=== PATIENT | female | born 1950 | race Caucasian/White ===

== ENCOUNTER 2023-03-16 06:33 | Outpatient (RCR) | payer OTHER, SELFPAY | END 2023-04-05 07:27 | disposition home or self-care (01) | LOC: RPT 06:33 | PROVIDERS: ATTENDING PHYSICIAN Family Medicine | DX: M54.50 Low back pain, unspecified (principal); Z73.6 Limitation of activities due to disability | CPT/HCPCS: 97110; 97162; 97535 ==

== ENCOUNTER → 2023-04-15 11:48 | Outpatient (REF) | payer OTHER, SELFPAY | LOC: WDC 11:48 | PROVIDERS: ATTENDING PHYSICIAN Family Medicine | DX: Z12.31 Encounter for screening mammogram for malignant neoplasm of breast (principal) | CPT/HCPCS: 77063; 77067 ==

== ENCOUNTER → 2024-02-18 12:27 | Outpatient (REF) | payer OTHER, SELFPAY | LOC: RCS 12:27 | PROVIDERS: ATTENDING PHYSICIAN Family Medicine | DX: R07.89 Other chest pain (principal); M54.12 Radiculopathy, cervical region | CPT/HCPCS: 93306 ==

== ENCOUNTER → 2024-02-18 13:34 | Outpatient (REF) | payer OTHER, SELFPAY | LOC: EMG 13:34 | PROVIDERS: ATTENDING PHYSICIAN Family Medicine | DX: R07.89 Other chest pain (principal) | CPT/HCPCS: 95886; 95911 ==

== ENCOUNTER → 2024-04-12 06:59 | Outpatient (REF) | payer OTHER, SELFPAY ==
[2024-04-12] MEDS: LEXISCAN 0.4 MG IV (09:35)
== END ==
LOC: RCS 06:59
PROVIDERS: ATTENDING PHYSICIAN Family Medicine
DX: I49.8 Other specified cardiac arrhythmias (principal); R07.89 Other chest pain
CPT/HCPCS: 78452; 93017; A9500; J2785

== ENCOUNTER → 2024-04-17 13:41 | Outpatient (REF) | payer OTHER, SELFPAY | LOC: WDC 13:41 | PROVIDERS: ATTENDING PHYSICIAN Family Medicine | DX: Z12.31 Encounter for screening mammogram for malignant neoplasm of breast (principal) | CPT/HCPCS: 77063; 77067 ==

== ENCOUNTER 2024-04-28 08:21 | Day surgery (SDC) | payer OTHER, SELFPAY ==
[2024-04-26 10:26] VITALS: BMI 30.3
[2024-04-26 10:49] LABS: % Basophils 0.6 % (0-2); % Eosinophils 3.4 % (0-6); % Immature Granulocytes 0.2 % (0-0.5); % Lymphocytes 30.5 % (20.5-51.1); % Monocytes 11.1 % (1.7-9.3); % Neutrophils 54.2 % (42.2-75.2); Absolute Eosinophils 0.2 10^3/uL (0-0.7); Absolute Lymphocytes 1.5 10^3/uL (1.2-3.4); Absolute Monocytes 0.5 10^3/uL (0.1-0.6); Absolute Neutrophils 2.6 10^3/uL (1.4-6.5); Hematocrit 41.7 % (37.0-47.0); Hemoglobin 13.5 g/dL (12.0-16.0); Mean Corp Hgb Conc. 32.4 g/dL (33.0-37.0); Mean Corpuscular Volume 86.3 fL (81.0-99.0); Mean Platelet Volume 9.8 fL (7.4-10.4); Nucleated Red Blood Cells % 0 %; Platelet Count 247 10^3/uL (130-400); Red Blood Cell Count 4.83 10^6/uL (4.20-5.40); Red Cell Dist. Width 14.3 % (11.5-14.5); White Blood Cell Count 4.8 10^3/uL (4.8-10.8)
[2024-04-26 11:18] LABS: ALT (SGPT) 22 U/L (0-35); AST (SGOT) 21 U/L (14-36); Albumin 4.9 g/dl (3.5-5.0); Alkaline Phosphatase 97 U/L (38-126); Blood Urea Nitrogen 17 mg/dl (7-17); Calcium 9.9 mg/dl (8.4-10.2); Carbon Dioxide 30 mmol/L (22-30); Chloride 100 mmol/L (98-107); Estimated Creatinine Clearance 81 ml/min; Glucose 104 mg/dl (70-99); Potassium 4.9 mmol/L (3.5-5.1); Sodium 137 mmol/L (135-145); Total Bilirubin 0.9 mg/dl (0.2-1.3); Total Protein 7.6 g/dl (6.3-8.2); eGFR > 60.00
[2024-04-28] VITALS (16 sets, daily range): BP systolic 143–168; BP diastolic 80–91
[2024-04-28] MEDS: NSS 255 ML IV (09:06)
--- NOTE | 2024-04-28 16:38 | ITS.CL.PN ---
Power Press Tender - Procedure Note
Procedure
Procedure Note:
CARDIAC CATHETERIZATION REPORT
Date of Procedure: 04/28/2024
Referring: Dr. Tremayne Choi MD
Indication: new cardiomyopathy with reduced ejection fraction, positive cardiac stress test
PROCEDURE(S)
1. left heart catheterization
2. coronary angiography
ACCESS: 6F right radial artery (closure: radial band)
CATHETERS
1. 6F JR4
2. 6F JL3.5
MODERATE SEDATION: 25 minutes of moderate sedation was utilized. An independent forensic medical examiner was present to assist with and help manage the patient's level of consciousness and physiologic status.
ULTRASOUND GUIDED VASCULAR ACCESS (right radial artery): Ultrasound was utilized for vascular access. The vessel was visualized under ultrasound and noted to be patent. An image of the vessel was stored permanently in the patient's medical record.
Under direct ultrasound guidance, vascular access was obtained using a modified Seldinger technique and a 6 Iraqi sheath was placed.
HEMODYNAMIC DATA
LV 154/9 (EDP 16) mmHg
AO 151/79 (mean 109) mmHg
CORONARY ANGIOGRAPHY
Dominance: Right
LM: large, normal
LAD: large vessel giving rise to a small D1, moderate caliber D2, and wrapping around the apex. There is a 60% stenosis in the proximal vessel, focal 40% stenosis before the D1, and focal 70% stenosis after the D2.
LCx: large vessel giving rise to a small OM1, large OM2, large OM3, and several LPL branches. There is an 80% stenosis in the proximal portion of the OM1 and 40% ostial stenosis of the ostial OM2.
RCA: large vessel giving rise to a large RPDA and several RPL branches. There is a 50% stenosis in the proximal RCA and a focal 80% stenosis just before the bifurcation of the RPDA and RPAV (Warren 1,0,0).
RADIATION: dose 338 mGy; DAP 19.9 Gy*cm2; fluoroscopy time 3.7 min
CONCLUSIONS
1. Three-vessel obstructive coronary artery disease as described.
2. Mildly elevated LV filling pressure with no aortic stenosis
RECOMMENDATIONS
1. Aggressive secondary prevention of coronary artery disease
2. Guideline directed medical therapy for heart failure with mildly reduced ejection fraction
3. Referral to CT surgery for consideration of coronary artery bypass grafting, ideally with grafts to the RPDA, OM1, D2, and mid-LAD. Given lack of anginal symptoms, limited data supporting benefit of percutaneous revascularization in ischemic
cardiomyopathy, as well as moderate to high syntax score, percutaneous revascularization is not appropriate at this time.
Copy to: Dr. Tremayne Choi MD (horticultural farm manager); Dr. Hugh Razo MD (PCP)
Signed: Paul Hebert MD, PhD
== END 2024-04-28 16:20 | disposition home or self-care (01) ==
LOC: CATH 08:21
PROVIDERS: ATTENDING PHYSICIAN Student in an Organized Health Care Education/Training Program; FAMILY PHYSICIAN Family Medicine; OTHER PHYSICIAN Internal Medicine Cardiovascular Disease
DX: I25.10 Atherosclerotic heart disease of native coronary artery without angina pectoris (principal); R94.39 Abnormal result of other cardiovascular function study; I42.9 Cardiomyopathy, unspecified; I44.7 Left bundle-branch block, unspecified; K21.9 Gastro-esophageal reflux disease without esophagitis; K76.0 Fatty (change of) liver, not elsewhere classified; Z80.0 Family history of malignant neoplasm of digestive organs; Z79.82 Long term (current) use of aspirin
CPT/HCPCS: 99152; 99153; C1894; 36415; 76937; 80053; 85025; 93005; 93458; Q9967

== ENCOUNTER → 2024-05-23 09:34 | Outpatient (REF) | payer OTHER, SELFPAY | LOC: HWRAD 09:34 | PROVIDERS: ATTENDING PHYSICIAN Thoracic Surgery (Cardiothoracic Vascular Surgery); FAMILY PHYSICIAN Family Medicine | DX: I25.10 Atherosclerotic heart disease of native coronary artery without angina pectoris (principal); Z01.810 Encounter for preprocedural cardiovascular examination | CPT/HCPCS: 71250; 94010 ==

== ENCOUNTER 2024-06-07 04:47 | Inpatient (IN) | payer OTHER, SELFPAY ==
[2024-05-18 08:28] VITALS: BMI 30.3
[2024-05-18 09:09] LABS: % Basophils 0.7 % (0-2); % Eosinophils 3.7 % (0-6); % Immature Granulocytes 0.4 % (0-0.5); % Lymphocytes 26.8 % (20.5-51.1); % Monocytes 9.5 % (1.7-9.3); % Neutrophils 58.9 % (42.2-75.2); Absolute Eosinophils 0.2 10^3/uL (0-0.7); Absolute Lymphocytes 1.4 10^3/uL (1.2-3.4); Absolute Monocytes 0.5 10^3/uL (0.1-0.6); Absolute Neutrophils 3.2 10^3/uL (1.4-6.5); Hematocrit 40.5 % (37.0-47.0); Hemoglobin 13.2 g/dL (12.0-16.0); Mean Corp Hgb Conc. 32.6 g/dL (33.0-37.0); Mean Corpuscular Hgb 27.7 pg (27.0-31.0); Mean Corpuscular Volume 85.1 fL (81.0-99.0); Mean Platelet Volume 10.1 fL (7.4-10.4); Nucleated Red Blood Cells % 0 %; Platelet Count 241 10^3/uL (130-400); Red Blood Cell Count 4.76 10^6/uL (4.20-5.40); Red Cell Dist. Width 14.4 % (11.5-14.5); White Blood Cell Count 5.4 10^3/uL (4.8-10.8)
[2024-05-18 09:09] LABS: Urine Albumin Negative (Neg - Trace); Urine Bilirubin Negative (Negative); Urine Character Clear (Clear); Urine Color Yellow; Urine Glucose Negative (Negative); Urine Ketone Negative (Negative); Urine Leukocyte 3+ (Negative); Urine Nitrite Negative (Negative); Urine Occult Blood Negative (Negative); Urine Specific Gravity 1.015 (<1.030); Urine Urobilinogen Negative (Neg - 1+)
[2024-05-18 09:18] LABS: INR 0.91; PT 12.7 Sec (11.4-14.6)
[2024-05-18 09:25] LABS: Urine Bacteria Moderate (Negative); Urine Red Blood Cell 0-2 /HPF (0-2); Urine Urothelial Cell 0-2 /LPF (FEW)
[2024-05-18 09:28] LABS: ALT (SGPT) 30 U/L (0-35); AST (SGOT) 25 U/L (14-36); Albumin 4.3 g/dl (3.5-5.0); Alkaline Phosphatase 92 U/L (38-126); Blood Urea Nitrogen 18 mg/dl (7-17); Calcium 9.9 mg/dl (8.4-10.2); Carbon Dioxide 28 mmol/L (22-30); Chloride 107 mmol/L (98-107); Direct Bilirubin 0.1 mg/dl (0.0-0.4); Estimated Creatinine Clearance 96 ml/min; Glucose 104 mg/dl (70-99); Potassium 4.4 mmol/L (3.5-5.1); Sodium 142 mmol/L (135-145); Total Bilirubin 0.7 mg/dl (0.2-1.3); eGFR > 60.00
--- NOTE | 2024-05-18 09:56 | CM ---
Met with Mrs. Villa in [facility]. She states prior to admission she resides with her significant other, ( she calls him her spouse) and her friend, Bobbi in a one story home with four steps to enter. She states her spouse is handicapped due to a car
accident. She states prior to admission she was independent with ambulation and adls. She states she does not have any DME in the home. She states she has a prescription plan and uses [facility]. She states her friend Bobbi will be home to
assist in her care if needed. The plan is to for CABG on Friday, June 07, 2024.
We reviewed pre-op and post-op routines. We reviewed the shower instructions. She has the soap, written instructions and the Cardiothoracic Surgery Educational Booklet. We also reviewed restrictions including sternal precautions and driving
restrictions. We discussed a home visit by the Transitional Care Nurse. She is agreeable to a home visit. The plan is for CABG on Friday, June 07, 2024.
[2024-05-18 11:20] LABS: Glycohemoglobin (HgbA1c) 5.7 % (4.0-5.6)
[2024-06-07] VITALS (18 sets, daily range): BP systolic 86–183; BP diastolic 56–124; PULSE 90–98; BMI 31.2
[2024-06-07] MEDS: PROTONIX 40 MG PO (05:23)
[2024-06-07] MEDS: BACTROBAN 2% OINTMENT 1 APPLIC NASAL ×2 (05:23→22:27)
[2024-06-07] MEDS: LOPRESSOR 25 MG PO (05:23)
[2024-06-07] MEDS: MAGNESIUM OXIDE 500 MG PO (05:23)
--- NOTE | 2024-06-07 05:48 | PTCARENOTE ---
pt arrived to CVICU for CABG with Dr. Sena. pt clipped and cleaned with CHG wipes. 2x home showers confirmed. admission question answers. home medications reviewed. pre op meds administrated. pre op check list reviewed. awaing Dr. Sena and CVOR.
--- NOTE | 2024-06-07 06:02 | W.CVOR.SURPR ---
CVOR Surgeon Immed Pre Op
-
I have examined this patient prior to performance of the scheduled procedure.
The patient's condition is unchanged from the time of the dictated/written History and
Physical and the patient is able to undergo the scheduled procedure.
[2024-06-07 07:31] LABS: ACT+ - POC 107 Seconds (82-134)
[2024-06-07 07:54] LABS: Urine Albumin Negative (Neg - Trace); Urine Bilirubin Negative (Negative); Urine Character Clear (Clear); Urine Color Yellow; Urine Glucose Negative (Negative); Urine Ketone Negative (Negative); Urine Leukocyte Negative (Negative); Urine Nitrite Negative (Negative); Urine Occult Blood Negative (Negative); Urine Urobilinogen Negative (Neg - 1+)
[2024-06-07 09:18] LABS: ACT+ - POC 579 Seconds (82-134)
[2024-06-07 09:51] LABS: B.E. - POC 1.2 mmol/L; Glucose - POC 105 mg/dl (70-99); HCO3 - POC 26 mmol/L (21-28); Hematocrit - POC 37 % PCV (37-47); Hemodilution- POC No; Hemoglobin Calculated - POC 12.4; Lactate - POC 0.83 mmol/L (0.36-0.75); O2 Saturation %Calculated-POC 99.4 % (94-98); PCO2 - POC 38 mmHg (35-48); PO2 - POC 152 mmHg (83-108); Potassium - POC 3.8 mmol/L (3.5-5.1); Sodium - POC 144 mmol/L (136-145); Specimen Type - POC Arterial; pH - POC 7.43 (7.35-7.45)
[2024-06-07 10:01] LABS: ACT+ - POC 495 Seconds (82-134)
[2024-06-07 10:28] LABS: B.E. - POC 2.9 mmol/L; Glucose - POC 159 mg/dl (70-99); HCO3 - POC 27 mmol/L (21-28); Hematocrit - POC 32 % PCV (37-47); Hemodilution- POC Yes; Hemoglobin Calculated - POC 10.8; Ionized Calcium - POC 1.01 mmol/L (1.15-1.33); Lactate - POC 0.57 mmol/L (0.36-0.75); PCO2 - POC 39 mmHg (35-48); PO2 - POC 381 mmHg (83-108); Potassium - POC 5.2 mmol/L (3.5-5.1); Sodium - POC 141 mmol/L (136-145); Specimen Type - POC Arterial; pH - POC 7.45 (7.35-7.45)
[2024-06-07 10:37] LABS: ACT+ - POC 443 Seconds (82-134)
--- NOTE | 2024-06-07 10:44 | W.PN.CD ---
Today's Communication / Plan
-
CABG today.
Impression / Plan
-
Impression/Plan: 73 y/o female with HTN, HLD, CAD and ischemic cardiomyopathy (LVEF 44%) admitted for elective CABG.
#CAD
-Chronic, progressive.
-Currently undergoing CABG surgery.
-Anticipate routine post operative management.
#HTN
-Chronic.
-Hold antihypertensive medications as we resolve her post operative hemodynamic changes.
#HLD
-Chronic, stable.
-Resume statin when possible.
-Goal LDL < 55.
Subjective/Interval History:
Currently undergoing surgery.
DATA:
Cardiac Catheterization, 04/28/2024:
CORONARY ANGIOGRAPHY
Dominance: Right
LM: large, normal
LAD: large vessel giving rise to a small D1, moderate caliber D2, and wrapping around the apex. There is a 60% stenosis in the proximal vessel, focal 40% stenosis before the D1, and focal 70% stenosis after the D2.
LCx: large vessel giving rise to a small OM1, large OM2, large OM3, and several LPL branches. There is an 80% stenosis in the proximal portion of the OM1 and 40% ostial stenosis of the ostial OM2.
RCA: large vessel giving rise to a large RPDA and several RPL branches. There is a 50% stenosis in the proximal RCA and a focal 80% stenosis just before the bifurcation of the RPDA and RPAV (Warren 1,0,0).
TTE, 02/18/2024:
CONCLUSIONS
Mildly reduced left ventricular systolic function. Global hypokinesis.
LV ejection fraction is 44% by volumetric assessment.
Stage I diastolic dysfunction suggestive of abnormal relaxation.
No significant valvular disease.
No prior study available for comparison.
Pharmacologic SPECT, 04/12/2024:
CONCLUSION:
Abnormal Lexiscan stress test.
Inconclusive ECG for ischemia given the pharmacological study due to underlying left bundle branch block.
Perfusion imaging reveals a medium area of moderately decreased perfusion that is partially reversible in the mid to distal anterior wall and apex consistent with infarct with notable zohaib-infarct ischemia.
Systolic function is mildly reduced. The ejection fraction is 44%.
Moderate to high risk Stress Risk study.
No previous study available for comparison.
Physical Exam
Vital Signs/Labs
Vital Signs
BP Pulse Ox
174/95 97
06/07/24 04:59 06/07/24 04:55
06/05/24 06/06/24 06/07/24
11:59 11:59 11:59
Actual Weight 87.5 kg
05/18/24 08:40
05/18/24 08:40
PT 12.7 Sec (11.4-14.6) 05/18/24 08:40
INR 0.91 05/18/24 08:40
APTT 30.0 Sec (23.4-35.0) 05/18/24 08:40
Physical Exam
Constitutional: No acute distress and Comfortable
EENT: Anicteric and Other (ET tube in place.)
Neuro/Psych: Other (Intubated/sedated.)
Data Reviewed
-
Date of Service: June 07, 2024
Medical Decision Making: Reviewed Test Results and Test Interpretation
EKG: Tracing Personally Visualized and interpreted and Report Reviewed by me
Echo: Tracing Personally Visualized and interpreted and Report Reviewed by me
X-Ray/CT/US/MRI/NUC/PET: Image Personally Visualized and interpreted and Report Reviewed by me
Medical Tests (PFT, Pathology etc): Image Personally Visualized and interpreted, Report Reviewed by me and Discussed with Physician
Labs: Labs Reviewed by me
Old Records: Reviewed
[2024-06-07 10:55] LABS: B.E. - POC 0.9 mmol/L; Glucose - POC 173 mg/dl (70-99); HCO3 - POC 26 mmol/L (21-28); Hematocrit - POC 31 % PCV (37-47); Hemodilution- POC Yes; Hemoglobin Calculated - POC 10.6; Ionized Calcium - POC 1.03 mmol/L (1.15-1.33); Lactate - POC 0.65 mmol/L (0.36-0.75); O2 Saturation %Calculated-POC 99.9 % (94-98); PCO2 - POC 42 mmHg (35-48); PO2 - POC 354 mmHg (83-108); Potassium - POC 5.1 mmol/L (3.5-5.1); Sodium - POC 140 mmol/L (136-145); Specimen Type - POC Arterial
[2024-06-07 11:08] LABS: ACT+ - POC 551 Seconds (82-134)
--- NOTE | 2024-06-07 11:41 | CM ---
CM following for DC planning needs.
Patient in OR today for planned CABG.
Reviewed initial assessment. Pt. resides w/ sig. other in a private, 1 STH w/ 4 MARY. Pt. is functionally indep. w/ ADLs, mobility without any assisted device.
Antic. DC plan is for home w/ CT Transitional Care RN.
CM to follow.
[2024-06-07 11:58] LABS: B.E. - POC 0.7 mmol/L; Glucose - POC 178 mg/dl (70-99); HCO3 - POC 27 mmol/L (21-28); Hematocrit - POC 31 % PCV (37-47); Hemodilution- POC Yes; Hemoglobin Calculated - POC 10.5; Ionized Calcium - POC 1.04 mmol/L (1.15-1.33); Lactate - POC 1.66 mmol/L (0.36-0.75); O2 Saturation %Calculated-POC 99.8 % (94-98); PCO2 - POC 47 mmHg (35-48); PO2 - POC 254 mmHg (83-108); Potassium - POC 4.6 mmol/L (3.5-5.1); Sodium - POC 143 mmol/L (136-145); Specimen Type - POC Arterial; pH - POC 7.36 (7.35-7.45)
[2024-06-07 12:01] LABS: ACT+ - POC 186 Seconds (82-134)
[2024-06-07 12:11] LABS: ACT+ - POC 214 Seconds (82-134)
[2024-06-07 12:18] LABS: ACT+ - POC 118 Seconds (82-134)
--- NOTE | 2024-06-07 12:42 | W.IMMPOSTOP ---
Addendum entered and electronically signed by Andrey Sena MD 06/07/24 13:31:
[id number]
Original Note:
Surgical Immed Post Op Note
-
CARDIAC SURGERY OPERATIVE NOTE:
Preoperative Dx:
MVCAD
Postoperative Dx:
Same
Procedures:
1) Median sternotomy
2) Takedown of CHUCK (narrow pedicle)
3) Endoscopic harvest/prep of RLE GSV
4) CABG x 4 (CHUCK to LAD, GSV to D2, GSV to OM1, GSV to RPDA)
5) ELAA (40mm AtriClip - ACHV40)
6) Repair of minor aortic tear
Surgeon:
Andrey Sena M.D.
Assistants:
Bessy RodarteAJanay-CJaany; endoscopic harvest/prep of RLE GSV, medical lab assistant throughout
Herbert Jerez P.A.-C.; assistant professor during cannulation
Disha Fernández PJanayA.-CJanay; [id number] sternotomy closure
Anesthesia:
Eugene Porter C.R.N.A. and Bradly Hoover M.D.
Perfusion:
Yuan CastroCJanayP.; XC: 72min, CPB 133min
Findings:
CHUCK was healthy conduit w/ very brisk blood flow; ELD 2.75mm
GSV was healthy conduit w/ ELDs from 2.75-4.5mm
LAD was visible on the epicardial surface, anastomosis performed in distal 1/3, normal pisano at this site; ELD 2.75mm
D2 was visible on the epicardial surface, serpentine vessel, normal pisano at anastomotic site; ELD 1.75mm
OM1 was visible on the epicardial surface, normal pisano at anastomotic site; ELD 2.50mm
RPDA was visible on the epicardial surface, scattered calcifications, normal pisano at proximal midpoint anastomosis; ELD 2.50mm
Excellent flow in grafts on hand-injection and transit-time U/S flow probe assessment
GABRIELA was of windsock morphology; successfully occluded at base w/ 40mm AtriClip
The ascending aorta had a minor tear directly posterior to the proximal of the GSV to RPDA - repaired w/ pledgetted 5-0 prolene w/ good result
Post-CARRIE: LVEF 65%, no RWMA, normal RV, trace MR/TR, no AI/; GABRIELA confirmed excluded
Implants:
Epicardial V-wire x 1
AtriClip, 40mm, ACHV40; LOT [id number]
CT x 4 (B/L pleural, inferior mediastinal, superior mediastinal)
Sternal 'running-man' plate w/ 8 - 12mm screws
Sternal 'square' plate w/ 4 - 10mm screws
Complications:
No significant complications
Pt. took longer than typical to recover from cardioplegic arrest w/ VF requiring cardioversion x 3, bradycardic junctional rhythm requiring placement of temporary pacing wire, but eventually regained sustained NSR w/ known LBBB.
Condition:
90 sinus (-0.1/0.0), 103/59, CVP 8, 100%
GTTS: dobutamine 3, precedex 0.5, levophed 4, insulin OFF
Stable/guarded to CVICU
No major CT output
[2024-06-07 12:54] LABS: B.E. - POC -1.1 mmol/L; Glucose - POC 97 mg/dl (70-99); HCO3 - POC 24 mmol/L (21-28); Hematocrit - POC 30 % PCV (37-47); Hemodilution- POC Yes; Hemoglobin Calculated - POC 10.2; Ionized Calcium - POC 1.32 mmol/L (1.15-1.33); O2 Saturation %Calculated-POC 99.9 % (94-98); PCO2 - POC 42 mmHg (35-48); PO2 - POC 280 mmHg (83-108); Potassium - POC 3.6 mmol/L (3.5-5.1); Sodium - POC 148 mmol/L (136-145); Specimen Type - POC Arterial; pH - POC 7.37 (7.35-7.45)
[2024-06-07] MEDS: TYLENOL PO (13:03)
--- NOTE | 2024-06-07 13:15 | CON.INTV ---
Consultation
Consultation Request
Date/Time Consultation Requested: 06/07/24-1:15 PM
Date/Time Consultation Performed: 06/07/24-1:15 PM
Requesting Provider: Dr. Sena
Performing Provider: Dr. Avalos
Reason for Consultation: postoperative ventilator/critical care management
Medical History
-
Chief Complaint: CAD
History of Present Illness:
73-year-old never smoking obese female with a history of GERD, gastroparesis found to have significant multivessel CAD and underwent CABG-incendiary powder mixer consulted for postoperative ventilator/critical care management 06/07/24. The patient was
sedated on the ventilator and review of systems was unobtainable. Operative records were reviewed. Ventilator settings were reviewed. FiO2 has been weaned. Chest tubes were evaluated. Pressors were reviewed.
Past Medical History
Past Medical History: None ( Obesity. GERD. Gastroparesis.)
Social History
Tobacco: Non-smoker
Alcohol: Occasional
Drug: None
Personal:
Living: With Family
Occupational Exposures: No known asbestos exposure
Environmental Exposures: no known tuberculosis exposure
Family History
Family History: Other ( CAD. Colon cancer.)
Allergies / Home Medications
Allergies
Allergy/AdvReac Type Severity Reaction Status Date / Time
No Known Allergies Allergy Unverified 06/30/07 09:04
Home Medications
�Medication �Instructions �Recorded �Confirmed �Last Taken �Type
aspirin 81 mg tablet,delayed 81 mg PO DAILY 04/28/24 06/07/24 06/06/24 08:00 History
release
ergocalciferol (vitamin D2) 1,250 1,250 mcg PO QWEEK 04/28/24 06/07/24 06/04/24 08:00 History
mcg (50,000 unit) capsule (Vitamin
D2)
escitalopram oxalate 10 mg tablet 10 mg PO DAILY 04/28/24 06/07/24 06/06/24 08:00 History
lisinopril 10 mg tablet 10 mg PO QPM 04/28/24 06/07/24 06/04/24 08:00 History
metoprolol succinate 25 mg 25 mg PO QPM 04/28/24 06/07/24 06/06/24 08:00 History
tablet,extended release 24 hr
nitroglycerin 0.4 mg sublingual 0.4 mg sublingual Q5-15M PRN chest 04/28/24 06/07/24 Unknown History
tablet pain
rosuvastatin 40 mg tablet 40 mg PO DAILY 04/28/24 06/07/24 06/06/24 08:00 History
Review of Systems
-
Unable to Obtain full review of systems at this time due to: Other ( Per HPI)
Vitals / Labs / Diagnostic Testing
Vital Signs
BP Pulse Ox
174/95 97
06/07/24 04:59 06/07/24 04:55
Diagnostic Testing:
Physical Exam
-
Exam:
well-nourished and well-developed in no apparent distress
HEENT-atraumatic, normocephalic, oral tracheal intubation
Heart-regular rate and rhythm-no murmurs, rubs or gallops
Chest-clear to auscultation, no wheezes, crackles, median sternotomy bandage is not removed
Abdomen soft nondistended
Extremities-no cyanosis, clubbing, edema and good peripheral pulses
Integument-intact, no rashes, lesions or ecchymosis
Neurologically not alert, not oriented, not moving any of his extremities sedated on a ventilator
Assessment
-
73 yo never smoking obese female with a history of GERD, gastroparesis found to have significant multivessel CAD and underwent CABG-incendiary powder mixer consulted for postoperative ventilator/critical care management 06/07/24.
Multivessel CAD with preoperative EF 44%
Status post CABG x 4-Namrata-LAD, GSV-D2, GSV-OM1, GSV-RPDA-Dr. Sena 06/07/24
Conditions present prior to admission:
Obesity.
GERD.
Gastroparesis.
Plan
Ventilator settings reviewed
FiO2 will be weaned
Minute ventilation will be adjusted
Arterial blood gases will be monitored
Spontaneous breathing trial will be attempted with hopeful extubation after anesthesia/sedation wear off
Pulmonary artery catheter parameters will be followed
Pressors/antihypertensive/inotropes/diuretics will be provided as needed
Monitor chest tube output
Monitor hemoglobin
Monitor platelet count and coags
Transfuse blood product if needed
CT surgery following chest tubes
Monitor blood sugar
Insulin drip per protocol
Aspiration precautions
VAP prevention protocol
DVT prophylaxis
Early nutrition
Early mobilization
Consider outpatient sleep disordered breathing/sleep apnea evaluation
Critical care statement: A total of 55 minutes of critical care time was provided for this patient today. This includes management of ventilator, spontaneous breathing trial, arterial blood gases, pressors, of unstable vital signs, evaluation of the
patient at bedside, reviewing the patient's pertinent medical records including radiographs, microbiology, laboratory evaluations, and discussion with primary team and critical care nursing.
Diagnostic data:
CT chest 05/23/24-NAD, normal caliber thoracic aorta and mildly calcified plaque within the distal arch, extensive coronary artery calcifications, mild subsegmental atelectasis both posterior lower lobes
Cardiac catheterization 04/28/20245511-srmhz-lewagh CAD, 60% proximal LAD, 40% stenosis before D1, 80% stenosis proximal OM1 40% ostial stenosis OM2, 50% stenosis proximal RCA and 80% stenosis just before bifurcation of RPDA
Echocardiogram 02/18/2024-EF 44%, stage I diastolic dysfunction, no significant valvular disease
Spirometry 05/18/24-FEV1 2.3-100%, FVC 3.0-100%
Data Reviewed
-
PFT: Report reviewed by me
EKG: Report reviewed by me
Radiology: Report reviewed by me
CT Scan: Report reviewed by me
Medical Tests (Nuc Med, Echo etc): Report reviewed by me
Labs: Labs reviewed by me
Critical Care Time (in minutes): 55
[2024-06-07 13:24] LABS: Glucose - Point of Care 112 mg/dl (70-99)
[2024-06-07] MEDS: LR 250 ML IV ×3 (13:30→16:11)
[2024-06-07 13:33] LABS: B.E. -2.5 mmol/L; HCO3 22.5 mmol/L (21-28); Ionized Calcium 1.17 mMOL/L (1.15-1.33); O2 Saturation % 99.4 % (94-98); PCO2 39 mmHg (32-35); PO2 117 mmHg (83-108); Potassium 3.5 mMOL/L (3.5-5.1); Sodium 139 mMOL/L (136-145); pH 7.37 (7.35-7.45)
[2024-06-07 13:36] LABS: Hematocrit 27.4 % (37.0-47.0); Platelet Count 159 10^3/uL (130-400)
[2024-06-07 13:45] LABS: Blood Urea Nitrogen 14 mg/dl (7-17); Estimated Creatinine Clearance 96 ml/min; Glucose 110 mg/dl (70-99); Magnesium 2.8 mg/dl (1.6-2.3)
[2024-06-07 13:47] LABS: INR 1.46; PT 18.3 Sec (11.4-14.6)
[2024-06-07 13:48] LABS: APTT 31.3 Sec (23.4-35.0)
--- NOTE | 2024-06-07 13:48 | PTCARENOTE ---
Received patient from CVOR team, report given at bedside 1315. Patient Intubated and Sedated. Pupils 2 equal and reactive. Sinus Tach on monitor and VSS; Right IJ Cordis/ SILT, L radial Art line, PIV X1, all leveled and zero. Levo , Precedex,
Dobutamine, and Insulin infusing, see flowsheet for details. Epicardial V wire in place set to VBI 40/18/2. No Paced noted on monitor. Lungs clear bilateral, ETT 8,22 @lip. Vent setting SMIV, 40% /500/5/14.
CT X4 to -20 wall suction, no air leak, no creptis noted. Bowels sounds hypoactive, belly soft. Cabrera cathater drain clear yellow urine. Pulse present +3 Palpital, no noted edema. All surgical sites C/D/I. See nursing documentation for futher
details.
CTNP at bedside patient PASSENGER RATE CLERK Labile LR bolus given.
--- NOTE | 2024-06-07 13:50 | W.PN.UPDATE ---
Update Note
Progress Note Update
IV fluids: 0 mL
Crystalloid: 2900 mL
U.O.: 1000 mL
UF: 1200 mL
Blood: None
Wires: V-wires 40/10
Inotropes: Dobutamine - 3
Pressors: levophed - 5
Sedatives: precedex - 0.5
NEURO: sedated on Precedex, pupils +2mm B/L
RESP: #8 ETT @ 23 cm> 14/500/40/5 Lungs clear B/L. 2 mediastinal (5 cc on arrival) and R/L pleural (0 cc on arrival) chest tubes to -20cm suction. Sanguineous drainage
CV: RRR +S1, S2, no S3, no rub, no murmur. Aquacel Ag dressing to median sternotomy. RIJ cordis/slick; CVP 9
ABD: round, soft, no BS
EXT: no edema, +2/4 DP pulses B/L, no femoral bruit, RLE PAULETTE wrap intact with ecchymosis at R groin; R radial A-line intact
: Cabrera with clear yellow urine
A/P: POD #0 s/p CAB x 4 (CHUCK - LAD, GSV to D2, GSV to OM1, GSV to RPDA)
CARRIE: EF 65%
- wean and extubate
- Monitor CT and urine output
- Follow up labs and CXR
- Wean levophed for maps >65/SBP goal 90-120
- Will start ASA tonight
- EKG with prolonged QT/QTc (470/621) and sent to cards
>> Lexapro d/c, Amio con't - continue to monitor QTc
- Cards consulted
# acute surgical blood loss anemia-expected
- trend CBC
# acute post-operative hyperglycemia (A1C 5.7%)
- insulin infusion x 25h
# Hyperlipidemia
- resume statin when tolerating PO
[2024-06-07 14:05] LABS: Glucose - Point of Care 104 mg/dl (70-99)
[2024-06-07] MEDS: NSS 500 IV (14:11)
[2024-06-07] MEDS: ANCEF 10 IV ×2 (14:11)
[2024-06-07] MEDS: CALCIUM GLUCONATE 100 IV (14:13)
[2024-06-07] MEDS: KCL 50 IV (14:14)
[2024-06-07 15:10] LABS: Glucose - Point of Care 108 mg/dl (70-99)
[2024-06-07] MEDS: NEURONTIN PO (15:30)
[2024-06-07] MEDS: PACERONE PO ×2 (15:30→22:29)
[2024-06-07] MEDS: OFIRMEV 100 IV (15:50)
--- NOTE | 2024-06-07 15:51 | PTCARENOTE ---
Respiratory at bedside and pt placed on CPAP.
[2024-06-07 15:58] LABS: Glucose - Point of Care 107 mg/dl (70-99)
[2024-06-07 16:28] LABS: B.E. - POC -0.2 mmol/L; Blood Urea Nitrogen - POC 15 mg/dl (3-120); Chloride - POC 111 mmol/L (96-111); Creatinine - POC 0.67 mg/dl (0.3-1.0); Glucose - POC 118 mg/dl (70-99); HCO3 - POC 26 mmol/L (21-28); Hematocrit - POC 29 % PCV (37-47); Hemodilution- POC Yes; Hemoglobin Calculated - POC 9.7; Ionized Calcium - POC 1.31 mmol/L (1.15-1.33); Lactate - POC 2.56 mmol/L (0.36-0.75); O2 Saturation %Calculated-POC 95.7 % (94-98); PCO2 - POC 47 mmHg (35-48); PO2 - POC 85 mmHg (83-108); Potassium - POC 5.2 mmol/L (3.5-5.1); Sodium - POC 144 mmol/L (136-145); Specimen Type - POC Arterial; pH - POC 7.35 (7.35-7.45)
--- NOTE | 2024-06-07 16:40 | RESPNOTE ---
patient extubated at this time without incident. 100% on 6L. unable to do IS at this time-patient very sleepy.
--- NOTE | 2024-06-07 16:40 | PTCARENOTE ---
CTNP at bedside, ABG collected, result reviewed with CTNP. RT at bedside patietn extubated at 1635, place on 5 L NC. Alert and Oriented
[2024-06-07 17:00] LABS: Glucose - Point of Care 122 mg/dl (70-99)
[2024-06-07 17:05] LABS: Hematocrit 27.2 % (37.0-47.0); Hemoglobin 9.1 g/dL (12.0-16.0); Platelet Count 170 10^3/uL (130-400)
[2024-06-07 17:56] LABS: Glucose - Point of Care 106 mg/dl (70-99)
[2024-06-07 18:28] LABS: B.E. -2.7 mmol/L; HCO3 23.2 mmol/L (21-28); Ionized Calcium 1.25 mMOL/L (1.15-1.33); O2 Saturation % 99.2 % (94-98); PCO2 44 mmHg (32-35); PO2 122 mmHg (83-108); Sodium 137 mMOL/L (136-145); pH 7.33 (7.35-7.45)
[2024-06-07] MEDS: SODIUM BICARBONATE 50 MEQ IV (18:35)
[2024-06-07] MEDS: LOW STRENGTH ASPIRIN 81 MG PO (19:16)
[2024-06-07] MEDS: CALCIUM CHLORIDE 10% SYRINGE 500 MG IV ×2 (19:25→19:27)
[2024-06-07] MEDS: ANCEF 5 IV (19:44)
[2024-06-07] MEDS: SENOKOT-S 1 TABLET PO (19:46)
[2024-06-07] MEDS: LR 1000 IV (19:58)
[2024-06-07 20:07] LABS: Glucose - Point of Care 98 mg/dl (70-99)
--- NOTE | 2024-06-07 20:31 | PTCARENOTE ---
1899 -COS report given to incoming RN, 1914- patient had ice chips and head of bed was raise slightly to given PO ASA. Patient had a drop in SBP. mAP in 50's, patient A& O , denies dizziness. Levoped was increase and trirated upto 6 and LR bolus,
and Claudio+ 1 G given, leveo wean down agaion. Dr Sena at bedside order LR 100/hr to be given as well. 1999- patietn sat up again for medicaiton and SBp drop as before, levo tirated up and back down again until stable.
[2024-06-07 21:52] LABS: Glucose - Point of Care 127 mg/dl (70-99)
[2024-06-07] MEDS: TYLENOL 1000 MG PO (22:24)
[2024-06-07] MEDS: NEURONTIN 100 MG PO (22:25)
[2024-06-07 22:29] LABS: B.E. -0.4 mmol/L; HCO3 24.9 mmol/L (21-28); Ionized Calcium 1.34 mMOL/L (1.15-1.33); O2 Saturation % 99.6 % (94-98); PCO2 43 mmHg (32-35); PO2 117 mmHg (83-108); Potassium 4.8 mMOL/L (3.5-5.1); pH 7.37 (7.35-7.45)
[2024-06-07] MEDS: LEVOPHED 250 IV (22:30)
[2024-06-07 22:31] LABS: Hematocrit 26.7 % (37.0-47.0); Hemoglobin 8.7 g/dL (12.0-16.0); Mixed Venous O2 Saturation 71.1 %
[2024-06-07] MEDS: ALBUMIN 5% 250 IV (22:40)
--- NOTE | 2024-06-07 23:15 | PTCARENOTE ---
Assumed sole care of patient. At 2230, pt with another episode of hypotension. SBP initially 80's systolic. Goal SBP 90-120 mmHG. PA at [facility]. Albumin 5% 250 mls IV ordered and given. Labs drawn and sent. Portable CXR done. Rolled pt from
[id number] for XR. With movement, BP down to 6o-70's systolic. Albumin infusing and Levo titrated for goal SBP. Pt remains awake, talking. O2 sat 97% on 5L/NC. PA with results of all tests and communicated with Dr. Sena. Remains in SR,
occasional PVCs. 2200 dose of Amiodarone held per PA order.
Currently, Pt alert, awake, oriented x 4. Speech clear. Moves extremities with equal strength. Pt on 5L/NC. Sats 97-98%. BBS present. Decreased to B bases. Audible heart tones. Pt in SR, rate 80-90's. Levo gtt at 2 mcg/min. Dobutamine gtt at 1
mcg/kg/min. Decreased at 2140 per provider order. CVP 6-7. V wire attached to Temp PM: back up rate 40, mA 18, sensitivity 2. CTs x 4, all to -20 cm suction. Drainage monitored q1hr and prn. R groin noted to be bruised. SHUKRI Mario aware. Palpable R
DP pulse, Cap refill < 2 sec. Belly soft, nontender. Hypoactive bs x 4. Cabrera with clear, yellow urine. Hourly UO documented. Glycemic protocol followed. Insulin gtt infusing. Ongoing plan of care.
[2024-06-08] VITALS (38 sets, daily range): BP systolic 77–130; BP diastolic 42–70; PULSE 87; O2SAT 92–95; BMI 32.4
[2024-06-08 02:15] LABS: Glucose - Point of Care 100 mg/dl (70-99)
[2024-06-08] MEDS: ROXICODONE 2.5 MG PO ×2 (02:35→10:26)
--- NOTE | 2024-06-08 02:46 | PTCARENOTE ---
Dobutamine gtt off at 0111 per provider order. Roxicodone 2.5 mg po given at 0235 for 5/10 sternal pain. Raised HOB prior to taking pill, BP down to 91 systolic briefly. Levo gtt remains at 2 mcg/min. LR at 100 mls/hr. Pt in SR. T 100.1. Sats on
5L/NC are 99%. Titrated to 4L/NC.
[2024-06-08 04:02] LABS: Mixed Venous O2 Saturation 71.1 %
[2024-06-08 04:05] LABS: Glucose - Point of Care 115 mg/dl (70-99)
[2024-06-08] MEDS: ANCEF 5 IV ×2 (04:10→13:14)
[2024-06-08 04:12] LABS: Hematocrit 22.7 % (37.0-47.0); Hemoglobin 7.4 g/dL (12.0-16.0); Mean Corp Hgb Conc. 32.6 g/dL (33.0-37.0); Mean Platelet Volume 10.3 fL (7.4-10.4); Platelet Count 161 10^3/uL (130-400); Red Blood Cell Count 2.64 10^6/uL (4.20-5.40); Red Cell Dist. Width 14.6 % (11.5-14.5); White Blood Cell Count 12.4 10^3/uL (4.8-10.8)
[2024-06-08 04:26] LABS: Blood Urea Nitrogen 20 mg/dl (7-17); Calcium 9.1 mg/dl (8.4-10.2); Carbon Dioxide 27 mmol/L (22-30); Chloride 109 mmol/L (98-107); Estimated Creatinine Clearance 96 ml/min; Glucose 110 mg/dl (70-99); Potassium 4.6 mmol/L (3.5-5.1); Sodium 138 mmol/L (135-145); eGFR > 60.00
[2024-06-08 06:08] LABS: Glucose - Point of Care 110 mg/dl (70-99)
--- NOTE | 2024-06-08 06:15 | PTCARENOTE ---
Labs drawn and sent. EKG done. Portable CXR completed. When sitting pt forward for CXR, pt with transient hypotension-80's/40's. Levo gtt remains at 2 mcg/min. Hgb this am 7.4. SHUKRI Mario aware. EKG shown to SHUKRI. MVO2 with Dobutamine gtt off is
71.1. Pt remains in SR, rate 70--80's. 4L/NC/O2, O2 sat 97%. CDB and IS done with pt. IS peak 500 mls. Ongoing glycemic protocol and plan of care.
[2024-06-08] MEDS: TYLENOL 1000 MG PO ×3 (06:25→22:45)
--- NOTE | 2024-06-08 07:49 | W.PN.INTV ---
Today's Communication / Plan
Recommendations
blood pressure somewhat labile
Wean norepinephrine and dobutamine
Monitor chest tube output
Begin to deline
Wean insulin drip off
If transferred to telemetry then business area director will sign off-call pulmonary if respiratory issues arise
Assessment
-
73 yo never smoking obese female with a history of GERD, gastroparesis found to have significant multivessel CAD and underwent CABG-business area director consulted for postoperative ventilator/critical care management 06/07/24.
Multivessel CAD with preoperative EF 44%
Status post CABG x 4-[place]-LAD, GSV-D2, GSV-OM1, GSV-RPDA-Dr. Sena 06/07/24
Conditions present prior to admission:
Obesity.
GERD.
Gastroparesis.
Plan
Tolerated extubation
Wean FiO2
Encourage incentive spirometry
Increase activity
Aspiration precautions
Pulmonary artery catheter and arterial line will be removed
Pressors have been weaned
Continue to monitor chest tube output
Follow hemoglobin
Continue to follow platelet count and coags
Transfuse blood product as needed
CT surgery following chest tubes as well
Follow blood sugar
Insulin supplementation continues as needed
Early nutrition
Early mobilization
DVT prophylaxis
Consider outpatient sleep disordered breathing/sleep apnea evaluation
If patient transferred to telemetry phase- then business area director will sign off-call pulmonary if respiratory issues arise
Reviewed the patient's pertinent medical records including radiographs, microbiology, laboratory evaluations, and discussion with primary team, and critical care nursing.
Diagnostic data:
CT chest 05/23/24-NAD, normal caliber thoracic aorta and mildly calcified plaque within the distal arch, extensive coronary artery calcifications, mild subsegmental atelectasis both posterior lower lobes
Cardiac catheterization 04/28/20241689-[id number] CAD, 60% proximal LAD, 40% stenosis before D1, 80% stenosis proximal OM1 40% ostial stenosis OM2, 50% stenosis proximal RCA and 80% stenosis just before bifurcation of RPDA
Echocardiogram 02/18/2024-EF 44%, stage I diastolic dysfunction, no significant valvular disease
Spirometry 05/18/24-FEV1 2.3-100%, FVC 3.0-100%
Subjective Dataa
Subjective Data
Date of Service:
Date of Service: June 08, 2024
Chief Complaint: [employer] Follow Up, Pulmonary Follow Up and Vent Management Follow Up
Subjective:
no complaints of shortness of breath this morning, pain controlled, no chest congestion, productive cough or abdominal pain
Review of Systems
General: Other ( Per HPI)
Objective Data
Data Reviewed
Vital Signs / I&O / Oxygen:
Vital Signs
Temp Pulse Resp BP Pulse Ox
100.3 F 85 18 104/60 98
06/08/24 07:00 06/08/24 07:00 06/08/24 07:00 06/08/24 07:00 06/08/24 07:00
Intake and Output
06/07/24 06/08/24 06/09/24
06:59 06:59 06:59
Intake Total 3482.0 / 3511.8 29.8 / 29.8
Output Total 1395 / 1430 35 / 35
Balance 2087.0 / 2081.8 -5.2 / -5.2
SaO2 [CPAP] 99
SaO2 [SIMV] 97
SaO2 98
Nasal Cannula flow liters per 4
minute
Physical Exam
General: Respiratory Distress (n) and Comfortable
HEENT: Normocephalic, Anicteric and Moist Mucous Membranes
Cardiovascular: Regular Rhythm
Respiratory: Wheeze (n), Crackles ( few basilar), Rhonchi, Non-Labored Respirations, Accessory Resp Muscle Use (n) and Stridor (n)
GI: Soft, Non Distended and Non Tender
Neurology: Awake, Alert and No Motor Deficits
Skin: Warm, Good Color, Cyanosis (n), Jaundice (n) and Rash (n)
Labs/Micro/Reports
Lab Data
06/08/24 03:53
06/08/24 03:53
Laboratory Results
06/07/24 06/07/24 06/07/24
13:24 18:21 22:22
PT 18.3 H
INR 1.46
APTT 31.3
pH 7.37 7.33 L 7.37
pCO2 39 H 44 H 43 H
pO2 117 H 122 H 117 H
HCO3 22.5 23.2 24.9
O2 Delivery Level
--- NOTE | 2024-06-08 07:57 | W.PN.CT ---
Today's Communication / Plan
-
-pod #1
-labile BP postop, responded to fluids and Levo
-mVO2 is 71. Drips: Levo 2, Dobut (for bradycardia) off currently, LR 100cc/hr for 10 hrs (currently off), Insulin
-CT outputs: 2 meds 125/190, 2 pleur 110/165 in 12/24 hrs
-maintain pw (was junctional in OR, VVI @ 40 backup)
-monitor rhythm and BP
-wean off drips, then deline
-d/c Cabrera
-d/c insulin
-encourage IS, OOB
Assessment / Plan
-
- mv-CAD - s/p CABG x 4 (CHUCK to LAD, GSV to D2, GSV to OM1, GSV to RPDA); ELAA (40mm AtriClip - ACHV40); Repair of minor aortic tear by Dr. Sena on 06/07/24, pod #1
- bradycardic junctional rhythm requiring placement of temporary pacing wire, but eventually regained sustained NSR w/ known LBBB.
- Post-CARRIE: LVEF 65%, no RWMA, normal RV, trace MR/TR, no AI/; GABRIELA confirmed excluded
- CAD
- Ischemic CM - EF 44% by Echo 02/2024 and 60-65% postop
- Non-smoker
- HTN/HLD
- Chronic LBBB
- GERD/ gastroparesis
- Acute postop blood loss anemia
- Acute postop hypotension d/t vasoplegia
- Acute postop atelectasis
- Acute postop hypovolemia with subsequent hypervolemia
Discussed patient care with: Nursing and Care Team
Subjective
-
Date of Service: June 07, 2024
Objective Data
-
Lab Results
06/07/24 22:22
06/07/24 13:24
PT 18.3 Sec (11.4-14.6) H 06/07/24 13:24
INR 1.46 06/07/24 13:24
APTT 31.3 Sec (23.4-35.0) 06/07/24 13:24
Vital Signs
Vital Signs
Temp Pulse Resp BP Pulse Ox
100.9 F H 94 15 93/62 99
06/07/24 23:30 06/07/24 23:25 06/07/24 23:25 06/07/24 22:41 06/07/24 23:25
CT Intake/Output/Weight
06/07/24 06/07/24 06/08/24
06:59 18:59 06:59
Intake Total 1303.3 / 2522.8 1219.5 / 2522.8
Output Total 595 / 995 400 / 995
Balance 708.3 / 1527.8 819.5 / 1527.8
SaO2: 99
Physical Exam
-
General: Awake and AOx3
Cardiovascular: Regular rate & rhythm, No Murmurs and No Rub
Respiratory: Decreased Breath Sounds
Sternum: Stable
Incision: Clean, Dry and Intact
Extremities: Other (trace edema b/l. DPs 1+ b/l)
Abdomen: soft, nontender, nondistended, + decreased bowel sounds
Data Reviewed
-
Lab Results: Results Reviewed
Medications: Active Meds Reviewed
Chest X-Ray: Report Reviewed and Image Reviewed
ECG: Report Reviewed and Image Reviewed
[2024-06-08 08:07] LABS: Glucose - Point of Care 97 mg/dl (70-99)
[2024-06-08] MEDS: LOPRESSOR PO (08:24)
[2024-06-08] MEDS: PROTONIX 40 MG PO (08:28)
[2024-06-08] MEDS: PLAVIX 75 MG PO (08:28)
[2024-06-08] MEDS: LOW STRENGTH ASPIRIN 81 MG PO (08:28)
[2024-06-08] MEDS: PACERONE 200 MG PO ×3 (08:28→22:46)
[2024-06-08] MEDS: SENOKOT-S 1 TABLET PO ×2 (08:29→19:13)
[2024-06-08] MEDS: NEURONTIN 100 MG PO ×3 (08:29→22:45)
[2024-06-08] MEDS: BACTROBAN 2% OINTMENT 1 APPLIC NASAL ×2 (08:29→19:13)
[2024-06-08] MEDS: CRESTOR 40 MG PO (08:29)
[2024-06-08] MEDS: MAGNESIUM OXIDE 500 MG PO ×2 (08:29→19:13)
[2024-06-08] MEDS: LIDOCAINE 4% PATCH 1 PATCH TOPICAL (08:30)
--- NOTE | 2024-06-08 08:47 | PTCARENOTE ---
Received pt from night order selector RN; pt AAOx3 and resting comfortably in bed; NSR on monitor and VSS; Epicardial V wire in place set to VVI 40/18/2 and no pacing noted; RIJ Cordis/CLIC, left a-line and PIV x1 patent; Levo and Insulin infusing see flow
sheet for details; Lungs diminished; IS to 750; CT x4 to -20 wall suction no crepitus and no tidaling noted; hypoactive bowel sounds; Cabrera catheter draining clear yellow urine; palpable pulses throughout; trace generalized edema; all surgical sites
C/D/I; see nursing documentation for further details.
--- NOTE | 2024-06-08 08:56 | W.PN.CD ---
Today's Communication / Plan
-
Wean levo as able
OOB when able
ISB
Impression / Plan
-
Impression/Plan: 73 y/o female with HTN, HLD, CAD and ischemic cardiomyopathy (LVEF 44%) admitted for elective CABG.
#CAD s/p CABG x 4 (CHUCK to LAD, GSV to D2, GSV to OM1, GSV to RPDA); ELAA (40mm AtriClip - ACHV40); Repair of minor aortic tear by Dr. Sena on 06/07/24
- had some SN dysfxn but back in SR
- wean levophed as able
- aspirin daily
- statin when able
#HTN
-Chronic.
-Holding antihypertensive medications as we resolve her post operative hemodynamic changes.
#HLD
-Chronic, stable.
-Resume statin when possible.
-Goal LDL < 55.
Subjective/Interval History:
Feeling well no new complaints; OOB when able and ISB
DATA:
Cardiac Catheterization, 04/28/2024:
CORONARY ANGIOGRAPHY
Dominance: Right
LM: large, normal
LAD: large vessel giving rise to a small D1, moderate caliber D2, and wrapping around the apex. There is a 60% stenosis in the proximal vessel, focal 40% stenosis before the D1, and focal 70% stenosis after the D2.
LCx: large vessel giving rise to a small OM1, large OM2, large OM3, and several LPL branches. There is an 80% stenosis in the proximal portion of the OM1 and 40% ostial stenosis of the ostial OM2.
RCA: large vessel giving rise to a large RPDA and several RPL branches. There is a 50% stenosis in the proximal RCA and a focal 80% stenosis just before the bifurcation of the RPDA and RPAV (Warren 1,0,0).
TTE, 02/18/2024:
CONCLUSIONS
Mildly reduced left ventricular systolic function. Global hypokinesis.
LV ejection fraction is 44% by volumetric assessment.
Stage I diastolic dysfunction suggestive of abnormal relaxation.
No significant valvular disease.
No prior study available for comparison.
Pharmacologic SPECT, 04/12/2024:
CONCLUSION:
Abnormal Lexiscan stress test.
Inconclusive ECG for ischemia given the pharmacological study due to underlying left bundle branch block.
Perfusion imaging reveals a medium area of moderately decreased perfusion that is partially reversible in the mid to distal anterior wall and apex consistent with infarct with notable zohaib-infarct ischemia.
Systolic function is mildly reduced. The ejection fraction is 44%.
Moderate to high risk Stress Risk study.
No previous study available for comparison.
Physical Exam
Vital Signs/Labs
Vital Signs
Temp Pulse Resp BP Pulse Ox
99.8 F 87 15 107/59 97
06/08/24 08:00 06/08/24 08:15 06/08/24 08:15 06/08/24 08:00 06/08/24 08:15
06/07/24 06/08/24 06/09/24
06:59 06:59 06:59
Actual Weight 192 lb 14.472 oz 200 lb 13.458 oz
06/08/24 03:53
06/08/24 03:53
PT 18.3 Sec (11.4-14.6) H 06/07/24 13:24
INR 1.46 06/07/24 13:24
APTT 31.3 Sec (23.4-35.0) 06/07/24 13:24
Magnesium 2.0 mg/dl (1.6-2.3) 06/08/24 03:53
Physical Exam
Constitutional: No acute distress and Comfortable
EENT: Anicteric
Cardiovascular: Rhythm & rate is regular and Pedal edema is absent
Respiratory: Respiratory effort normal
GI: Soft
Neuro/Psych: AO x 3
Data Reviewed
-
Date of Service: June 08, 2024
EKG: Tracing Personally Visualized and interpreted (sr)
Echo: Report Reviewed by me
Labs: Labs Reviewed by me
[2024-06-08 10:16] LABS: Glucose - Point of Care 126 mg/dl (70-99)
[2024-06-08] MEDS: LASIX 40 MG IV (10:20)
--- NOTE | 2024-06-08 11:19 | PTCARENOTE ---
SLIC and left A-line removed per CT CUT OUT MACHINE OPERATOR order; Cabrera catheter removed pt DTV by 1700.
--- NOTE | 2024-06-08 11:45 | PTCARENOTE ---
NSR on monitor and VSS: assessment unchanged and pt resting comfortably in bed.
[2024-06-08 12:10] LABS: Glucose - Point of Care 104 mg/dl (70-99)
--- NOTE | 2024-06-08 12:37 | W.PN.ANS.POP ---
Anesthesia Post Operative
- Anesthesia Post Op Note
Vital Signs Stable-See Nursing Note: Yes
Airway Patent: Yes
Adequate Pain Control: Yes
Change in Mental Status: No
Current Postoperative Nausea & Vomiting: No
Anesthesia Complications: No
General Anesthetic Recall: No
Unplanned Admission: No
Post Op Hydration Adequate: Yes
--- NOTE | 2024-06-08 12:54 | PTCARENOTE ---
2 RNs tried to assist pt to chair, SBP 70s and pt symptomatic; CT MANAGER ANDROID notified, 1 unit PRBCs order and awaiting blood bank.
[2024-06-08] MEDS: NSS IV (13:15)
--- NOTE | 2024-06-08 13:26 | PTCARENOTE ---
1 unit PRBCs infusing.
[2024-06-08 13:27] LABS: Glucose - Point of Care 106 mg/dl (70-99)
--- NOTE | 2024-06-08 15:06 | PTCARENOTE ---
1 unit PRBC infused without difficulties; NSR On monitor and VSS; assessment unchanged.
[2024-06-08 15:26] LABS: Glucose - Point of Care 111 mg/dl (70-99)
[2024-06-08] MEDS: ROXICODONE 5 MG PO (19:13)
[2024-06-08] MEDS: LOPRESSOR 12.5 MG PO (19:13)
[2024-06-08 19:18] LABS: Hepatitis C Antibody Negative (Negative)
--- NOTE | 2024-06-08 20:00 | PTCARENOTE ---
Assumed care of the patient at 1900. Patient OOB to chair, AOx3, reports pain 9/10. Given PRN oxycodone, see MAR. Patient requested to get BIB, RN explained the benefits of sitting upright in the chair for as long as tolerated and educated patient
on onset of action of pain medication. Patient in agreement to remain in the chair an additional hour. No issues with hypotension upon standing. SR on the monitor, heart tones distant but audible, regular, rate 90's-low 100's, no edema noted, pulses
palpable, v wire insulated. CTx4 in place to -20 cm wall suction, no air leak, tidaling, or crepitus noted, lungs dim at the bases, on 2LNC, c/o MARAVILLA. No c/o n/v, tolerating PO intake, hypoactive BS. Patient due to void at 0000. MS Mcghee CDI, R
groin ecchymotic, RLE CDI. RIJ cordis and PIV x1. See nursing worklist for additional intervention details.
[2024-06-09] VITALS (24 sets, daily range): BP systolic 82–154; BP diastolic 52–93; PULSE 93; O2SAT 96–98; BMI 32.8
--- NOTE | 2024-06-09 | PTCARENOTE ---
No acute issues. Pain relieved after PRN, exacerbated by deep breathing. VSS. Patient able to void, see I/O's.
--- NOTE | 2024-06-09 03:55 | PTCARENOTE ---
No changes in assessment. Patient sleeping between care. VSS.
[2024-06-09 04:10] LABS: Hemoglobin 7.5 g/dL (12.0-16.0); Mean Corp Hgb Conc. 32.6 g/dL (33.0-37.0); Mean Corpuscular Hgb 28.6 pg (27.0-31.0); Mean Corpuscular Volume 87.8 fL (81.0-99.0); Mean Platelet Volume 10.7 fL (7.4-10.4); Platelet Count 141 10^3/uL (130-400); Red Blood Cell Count 2.62 10^6/uL (4.20-5.40); Red Cell Dist. Width 14.7 % (11.5-14.5); White Blood Cell Count 13.7 10^3/uL (4.8-10.8)
[2024-06-09 04:25] LABS: Blood Urea Nitrogen 20 mg/dl (7-17); Calcium 8.4 mg/dl (8.4-10.2); Carbon Dioxide 29 mmol/L (22-30); Chloride 102 mmol/L (98-107); Estimated Creatinine Clearance 84 ml/min; Glucose 128 mg/dl (70-99); Potassium 4.1 mmol/L (3.5-5.1); Sodium 136 mmol/L (135-145); eGFR > 60.00
[2024-06-09] MEDS: TYLENOL 1000 MG PO ×3 (05:12→21:24)
--- NOTE | 2024-06-09 07:54 | W.PN.CT ---
Today's Communication / Plan
-
-pod #2
-looks and feels better after blood transfusion 06/08
-Hg today 7.5 (7.4 on 06/17)
-CT outputs: 2 meds 55/140, 2 pleur 30/85 in 12/24 hrs
-continue current meds
-encourage IS, OOB
Assessment / Plan
-
- mv-CAD - s/p CABG x 4 (CHUCK to LAD, GSV to D2, GSV to OM1, GSV to RPDA); ELAA (40mm AtriClip - ACHV40); Repair of minor aortic tear by Dr. Sena on 06/07/24, pod #
- bradycardic junctional rhythm requiring placement of temporary pacing wire, but eventually regained sustained NSR w/ known LBBB.
- Post-CARRIE: LVEF 65%, no RWMA, normal RV, trace MR/TR, no AI/; GABRIELA confirmed excluded
- CAD
- Ischemic CM - EF 44% by Echo 02/2024 and 60-65% postop
- Non-smoker
- HTN/HLD
- Chronic LBBB
- GERD/ gastroparesis
- Acute postop blood loss anemia
- Acute postop hypotension d/t vasoplegia
- Acute postop atelectasis
- Acute postop hypovolemia with subsequent hypervolemia
Discussed patient care with: Nursing and Care Team
Subjective
-
Date of Service: June 09, 2024
Objective Data
-
Lab Results
06/09/24 03:41
06/09/24 03:41
PT 18.3 Sec (11.4-14.6) H 06/07/24 13:24
INR 1.46 06/07/24 13:24
APTT 31.3 Sec (23.4-35.0) 06/07/24 13:24
Vital Signs
Vital Signs
Temp Pulse Resp BP Pulse Ox
98.4 F 88 18 82/52 97
06/09/24 03:53 06/09/24 06:00 06/09/24 03:53 06/09/24 06:00 06/09/24 05:00
CT Intake/Output/Weight
06/08/24 06/09/24 06/09/24
18:59 06:59 18:59
Intake Total 424.2 / 789.2 365 / 789.2
Output Total 870 / 1855 985 / 1855
Balance -445.8 / -1065.8 -620 / -1065.8
SaO2: 97
Physical Exam
-
General: Awake and AOx3
Cardiovascular: Regular rate & rhythm, Murmur and Rub
Respiratory: Decreased Breath Sounds
Sternum: Stable
Incision: Clean, Dry and Intact
Extremities: Other (trace edema)
Abdomen: soft, nontender, nondistended, + bowel sounds
Data Reviewed
-
Lab Results: Results Reviewed
Medications: Active Meds Reviewed
Chest X-Ray: Report Reviewed and Image Reviewed
ECG: Report Reviewed and Image Reviewed
--- NOTE | 2024-06-09 08:10 | W.PN.CD ---
Today's Communication / Plan
-
OOB ISB
cont routine post op care
follow telemetry
Impression / Plan
-
Impression/Plan: 73 y/o female with HTN, HLD, CAD and ischemic cardiomyopathy (LVEF 44%) admitted for elective CABG.
#CAD s/p CABG x 4 (CHUCK to LAD, GSV to D2, GSV to OM1, GSV to RPDA); ELAA (40mm AtriClip - ACHV40); Repair of minor aortic tear by Dr. Sena on 06/07/24
- had some SN dysfxn but back in SR immediate post op
- now off levo
- aspirin daily
- statin when able
#HTN
-Chronic.
-likely reinitiate in next 24 hrs
#HLD
-Chronic, stable.
-Resume statin when possible.
-Goal LDL < 55.
Subjective/Interval History:
Feeling OK some mild CP
DATA:
Cardiac Catheterization, 04/28/2024:
CORONARY ANGIOGRAPHY
Dominance: Right
LM: large, normal
LAD: large vessel giving rise to a small D1, moderate caliber D2, and wrapping around the apex. There is a 60% stenosis in the proximal vessel, focal 40% stenosis before the D1, and focal 70% stenosis after the D2.
LCx: large vessel giving rise to a small OM1, large OM2, large OM3, and several LPL branches. There is an 80% stenosis in the proximal portion of the OM1 and 40% ostial stenosis of the ostial OM2.
RCA: large vessel giving rise to a large RPDA and several RPL branches. There is a 50% stenosis in the proximal RCA and a focal 80% stenosis just before the bifurcation of the RPDA and RPAV (Warren 1,0,0).
TTE, 02/18/2024:
CONCLUSIONS
Mildly reduced left ventricular systolic function. Global hypokinesis.
LV ejection fraction is 44% by volumetric assessment.
Stage I diastolic dysfunction suggestive of abnormal relaxation.
No significant valvular disease.
No prior study available for comparison.
Pharmacologic SPECT, 04/12/2024:
CONCLUSION:
Abnormal Lexiscan stress test.
Inconclusive ECG for ischemia given the pharmacological study due to underlying left bundle branch block.
Perfusion imaging reveals a medium area of moderately decreased perfusion that is partially reversible in the mid to distal anterior wall and apex consistent with infarct with notable zohaib-infarct ischemia.
Systolic function is mildly reduced. The ejection fraction is 44%.
Moderate to high risk Stress Risk study.
No previous study available for comparison.
Physical Exam
Vital Signs/Labs
Vital Signs
Temp Pulse Resp BP Pulse Ox
98.4 F 88 18 82/52 97
06/09/24 03:53 06/09/24 06:00 06/09/24 03:53 06/09/24 06:00 06/09/24 07:58
06/08/24 06/09/24 06/10/24
06:59 06:59 06:59
Actual Weight 200 lb 13.458 oz 203 lb 0.732 oz
06/09/24 03:41
06/09/24 03:41
PT 18.3 Sec (11.4-14.6) H 06/07/24 13:24
INR 1.46 06/07/24 13:24
APTT 31.3 Sec (23.4-35.0) 06/07/24 13:24
Magnesium 2.0 mg/dl (1.6-2.3) 06/09/24 03:41
Physical Exam
Constitutional: No acute distress
EENT: Anicteric
Cardiovascular: Rhythm & rate is regular and Pedal edema is absent
Respiratory: Other (decreased b/s b/l; decreased inspiratory effort)
GI: Soft
Neuro/Psych: AO x 3
Data Reviewed
-
Date of Service: June 09, 2024
EKG: Tracing Personally Visualized and interpreted (sr)
Echo: Report Reviewed by me
Labs: Labs Reviewed by me
[2024-06-09] MEDS: CRESTOR 40 MG PO (09:00)
[2024-06-09] MEDS: PROTONIX 40 MG PO (09:00)
[2024-06-09] MEDS: SENOKOT-S 1 TABLET PO ×2 (09:00→20:16)
[2024-06-09] MEDS: PLAVIX 75 MG PO (09:00)
[2024-06-09] MEDS: NEURONTIN 100 MG PO ×3 (09:01→21:24)
[2024-06-09] MEDS: MAGNESIUM OXIDE 500 MG PO ×2 (09:01→20:15)
[2024-06-09] MEDS: PACERONE 200 MG PO ×3 (09:01→21:25)
[2024-06-09] MEDS: LOW STRENGTH ASPIRIN 81 MG PO (09:01)
[2024-06-09] MEDS: LIDOCAINE 4% PATCH 1 PATCH TOPICAL (09:01)
[2024-06-09] MEDS: LASIX 40 MG IV (09:01)
[2024-06-09] MEDS: LOPRESSOR 12.5 MG PO (09:01)
[2024-06-09] MEDS: BACTROBAN 2% OINTMENT 1 APPLIC NASAL ×2 (09:02→20:16)
--- NOTE | 2024-06-09 10:00 | PTCARENOTE ---
assumed care of pt from previous shift RN, sinus rhythm on tele, VSS, + peripheral pulses, trace edema to bilateral lower extremities. Lungs diminished, coughing and deep breathing encouraged. +bs, tolerating PO intake, voids spontaneously. Surgical
sites stable, ecchymosis to right groin. PIV and cordis flush easily. pt tolerated CR. Plan of care reviewed and questions encouraged.
--- NOTE | 2024-06-09 12:18 | PTCARENOTE ---
CTs removed as ordered
--- NOTE | 2024-06-09 15:13 | CM ---
CM following for DC planning needs.
Attempted to meet w/ patient, patient had recd phone call at that time.
Reviewed DC plan; Antic. home w/ CT Transitional Care RN.
CM to cont. to follow for support and DC planning needs.
[2024-06-09] MEDS: NSS 500 IV (15:15)
--- NOTE | 2024-06-09 15:52 | PTCARENOTE ---
VSS, pain well controlled, sinus rhythm maintained on tele.
[2024-06-09] MEDS: LOPRESSOR 25 MG PO (20:16)
[2024-06-10] VITALS (9 sets, daily range): BP systolic 103–128; BP diastolic 54–72; PULSE 87; O2SAT 98; BMI 32.1
--- NOTE | 2024-06-10 02:07 | W.PN.CT ---
Addendum entered and electronically signed by Andrey Sena MD 06/10/24 09:38:
I saw and examined the patient.
The PA's note was reviewed and I agree with the note.
Comment:
POD#3 s/p CABG x 4; ELAA
No major overnight events
OOB/IS/ambulate
Hgb 7.0 today - continue diruesis (-4.5L yesterday) - monitor
CXR - clear
D/C planning for 1-2 days
Original Note:
Today's Communication / Plan
-
-pod #3
-no issues overnight
-check ECG for Qt interval- 450/538 ms today (has known LBBB). Lexapro has been on hold d/t prolonged Qt postop and being on Amio
-diuresed with 40 iv Lasix 5/2 (UO 2049/4549)- continue
-Lopressor increased to 25 bid
-continue current meds (ASA, Plavix, Lopressor, Amio, Protonix)
-encourage IS (upto 750 so far), OOB
Assessment / Plan
-
- mv-CAD - s/p CABG x 4 (CHUCK to LAD, GSV to D2, GSV to OM1, GSV to RPDA); ELAA (40mm AtriClip - ACHV40); Repair of minor aortic tear by Dr. Sena on 06/07/24, pod #3
- bradycardic junctional rhythm requiring placement of temporary pacing wire, but eventually regained sustained NSR w/ known LBBB.
- Post-CARRIE: LVEF 65%, no RWMA, normal RV, trace MR/TR, no AI/; GABRIELA confirmed excluded
- CAD
- Ischemic CM - EF 44% by Echo 02/2024 and 60-65% postop
- Non-smoker
- HTN/HLD
- Chronic LBBB
- GERD/ gastroparesis
- Acute postop blood loss anemia- s/p 1 pRBC on 06/08
- Acute postop hypotension d/t vasoplegia
- Acute postop atelectasis
- Acute postop hypovolemia with subsequent hypervolemia
Discussed patient care with: Nursing and Care Team
Subjective
-
Date of Service: June 10, 2024
Objective Data
-
PT 18.3 Sec (11.4-14.6) H 06/07/24 13:24
INR 1.46 06/07/24 13:24
APTT 31.3 Sec (23.4-35.0) 06/07/24 13:24
Vital Signs
Vital Signs
Temp Pulse Resp BP Pulse Ox
98.5 F 82 16 114/64 93
06/10/24 00:08 06/10/24 01:00 06/10/24 00:08 06/09/24 23:59 06/10/24 00:08
CT Intake/Output/Weight
06/09/24 06/09/24 06/10/24
06:59 18:59 06:59
Intake Total 365 / 789.2 130 / 130
Output Total 985 / 1855 2500 / 3100 600 / 3100
Balance -620 / -1065.8 -2370 / -2970 -600 / -2970
SaO2: 93
Physical Exam
-
General: Awake and AOx3
Cardiovascular: Regular rate & rhythm, No Murmurs and No Rub
Respiratory: Decreased Breath Sounds
Sternum: Stable
Incision: Clean, Dry and Intact
Extremities: Edema +2
Abdomen: soft, nontender, nondistended, no BM, no nausea, + flatus
Data Reviewed
-
Lab Results: Results Reviewed
Medications: Active Meds Reviewed
Chest X-Ray: Report Reviewed and Image Reviewed
ECG: Report Reviewed and Image Reviewed
[2024-06-10 04:18] LABS: Hematocrit 21.6 % (37.0-47.0); Mean Corp Hgb Conc. 32.4 g/dL (33.0-37.0); Mean Corpuscular Hgb 28.6 pg (27.0-31.0); Mean Corpuscular Volume 88.2 fL (81.0-99.0); Mean Platelet Volume 10.3 fL (7.4-10.4); Platelet Count 147 10^3/uL (130-400); Red Blood Cell Count 2.45 10^6/uL (4.20-5.40); Red Cell Dist. Width 14.6 % (11.5-14.5); White Blood Cell Count 12.8 10^3/uL (4.8-10.8)
[2024-06-10 04:42] LABS: Blood Urea Nitrogen 14 mg/dl (7-17); Calcium 8.3 mg/dl (8.4-10.2); Carbon Dioxide 32 mmol/L (22-30); Chloride 102 mmol/L (98-107); Estimated Creatinine Clearance 98 ml/min; Glucose 121 mg/dl (70-99); Magnesium 2.2 mg/dl (1.6-2.3); Potassium 3.7 mmol/L (3.5-5.1); Sodium 138 mmol/L (135-145); eGFR > 60.00
[2024-06-10] MEDS: TYLENOL 1000 MG PO ×3 (06:24→21:17)
[2024-06-10] MEDS: LOPRESSOR 25 MG PO ×2 (08:10→20:07)
[2024-06-10] MEDS: KCL 40 MEQ PO (08:10)
[2024-06-10] MEDS: SENOKOT-S 1 TABLET PO (08:10)
[2024-06-10] MEDS: LOW STRENGTH ASPIRIN 81 MG PO (08:10)
[2024-06-10] MEDS: PLAVIX 75 MG PO (08:10)
[2024-06-10] MEDS: PACERONE 200 MG PO ×3 (08:10→21:18)
[2024-06-10] MEDS: CRESTOR 40 MG PO (08:10)
[2024-06-10] MEDS: MAGNESIUM OXIDE 500 MG PO ×2 (08:10→20:07)
[2024-06-10] MEDS: NEURONTIN 100 MG PO ×3 (08:10→21:18)
[2024-06-10] MEDS: LIDOCAINE 4% PATCH TOPICAL (08:11)
[2024-06-10] MEDS: PROTONIX 40 MG PO (08:11)
[2024-06-10] MEDS: BACTROBAN 2% OINTMENT 1 APPLIC NASAL ×2 (08:12→20:08)
--- NOTE | 2024-06-10 08:57 | PTCARENOTE ---
assumed care of pt from previous shift RN, sinus rhythm on tele, VSS, + peripheral pulses, trace edema to bilateral lower extremities. Lungs diminished, coughing and deep breathing encouraged. +bs, tolerating PO intake, voids spontaneously. Surgical
sites stable, ecchymosis to right groin. PIV and cordis flush easily. Plan of care reviewed and questions encouraged.
[2024-06-10] MEDS: LEXAPRO 10 MG PO (12:11)
[2024-06-10] MEDS: LASIX 20 MG IV (12:11)
--- NOTE | 2024-06-10 12:29 | PTCARENOTE ---
VSS, sinus rhythm maintained on tele. Pt denies pain.
[2024-06-10] MEDS: NSS IV (12:35)
--- NOTE | 2024-06-10 16:46 | PTCARENOTE ---
Ambulated with RN w/o issue, pain well managed, VSS. Assessment unchanged from prior.
--- NOTE | 2024-06-10 20:00 | PTCARENOTE ---
Assumed care of the patient at 1900. Patient in bed, AOx3, pleasant. SR with BBB on the monitor, heart tones audible, pulses palpable, trace edema, v wire insulated. Lungs diminished at the bases on RA. No nausea, tolerating PO, voiding without
difficulty into the toilet. Patient OOB with min assistance. RIJ Cordis and PIV x1. All surgical sites intact. Call tubbs within reach, assessment of needs ongoing. POC discussed and patient in agreement.
[2024-06-10] MEDS: SENOKOT-S PO (20:19)
[2024-06-10] MEDS: ROXICODONE 5 MG PO (21:17)
[2024-06-11] VITALS (17 sets, daily range): BP systolic 97–133; BP diastolic 54–73; BMI 31.8
--- NOTE | 2024-06-11 00:13 | PTCARENOTE ---
Patient sleeping between care. SpO2 87% on RA while sleeping. Placed on 1LNC, SpO2 91%+. Call tubbs within reach.
--- NOTE | 2024-06-11 04:01 | PTCARENOTE ---
VSS, no acute changes, patient sleeping between care.
[2024-06-11 04:07] LABS: Hematocrit 21.3 % (37.0-47.0); Hemoglobin 6.9 g/dL (12.0-16.0); Mean Corp Hgb Conc. 32.4 g/dL (33.0-37.0); Mean Corpuscular Volume 89.5 fL (81.0-99.0); Mean Platelet Volume 10.6 fL (7.4-10.4); Platelet Count 170 10^3/uL (130-400); Red Blood Cell Count 2.38 10^6/uL (4.20-5.40); Red Cell Dist. Width 14.8 % (11.5-14.5); White Blood Cell Count 10.4 10^3/uL (4.8-10.8)
--- NOTE | 2024-06-11 04:10 | PTCARENOTE ---
Pt Hgb 6.9, CVPA aware, await primary team.
[2024-06-11 04:20] LABS: Blood Urea Nitrogen 16 mg/dl (7-17); Calcium 8.2 mg/dl (8.4-10.2); Carbon Dioxide 31 mmol/L (22-30); Chloride 103 mmol/L (98-107); Estimated Creatinine Clearance 97 ml/min; Glucose 107 mg/dl (70-99); Magnesium 2.2 mg/dl (1.6-2.3); Sodium 138 mmol/L (135-145); eGFR > 60.00
--- NOTE | 2024-06-11 05:53 | W.PN.CT ---
Addendum entered and electronically signed by Andrey Sena MD 06/11/24 09:35:
I saw and examined the patient.
The PA's note was reviewed and I agree with the note.
Comment:
POD#4 s/p CABG x 4, ELAA
Doing well. Minor lightheadedness this AM - Hgb stable, but anemic @ 6.9.
Check Fe studies
Transfuse 1U PRBC
Hold on diuresis today
Check 2v CXR
OOB/IS/ambulate later
D/C planning for hopefully tomorrow
Original Note:
Today's Communication / Plan
-
-pod #4
-no issues overnight
-Hg 6.9 from 7.0 yesterday, VSS
-QTc interval 480/507 - 450/538 ms yesterday (has known LBBB). Lexapro restarted yesterday
-diuresed with 40 iv Lasix 5/3 (unmeasured voids)- continue
-continue current meds (ASA, Plavix, Lopressor, Amio, Protonix)
-encourage IS, OOB
Assessment / Plan
-
- mv-CAD - s/p CABG x 4 (CHUCK to LAD, GSV to D2, GSV to OM1, GSV to RPDA); ELAA (40mm AtriClip - ACHV40); Repair of minor aortic tear by Dr. Sena on 06/07/24, pod #4
- bradycardic junctional rhythm requiring placement of temporary pacing wire, but eventually regained sustained NSR w/ known LBBB.
- Post-CARRIE: LVEF 65%, no RWMA, normal RV, trace MR/TR, no AI/; GABRIELA confirmed excluded
- CAD
- Ischemic CM - EF 44% by Echo 02/2024 and 60-65% postop
- Non-smoker
- HTN/HLD
- Chronic LBBB
- GERD/ gastroparesis
- Acute postop blood loss anemia- s/p 1 pRBC on 06/08
- Acute postop hypotension d/t vasoplegia
- Acute postop atelectasis
- Acute postop hypovolemia with subsequent hypervolemia
Subjective
Procedure
s/p CABG x 4 (CHUCK to LAD, GSV to D2, GSV to OM1, GSV to RPDA); ELAA (40mm AtriClip - ACHV40); Repair of minor aortic tear by Dr. Sena on 06/07/24
-
Date of Service: June 11, 2024
Objective Data
-
Lab Results
06/11/24 03:36
06/11/24 03:36
PT 18.3 Sec (11.4-14.6) H 06/07/24 13:24
INR 1.46 06/07/24 13:24
APTT 31.3 Sec (23.4-35.0) 06/07/24 13:24
Vital Signs
Vital Signs
Temp Pulse Resp BP Pulse Ox
98.1 F 62 18 111/64 97
06/11/24 03:38 06/11/24 04:00 06/11/24 03:38 06/11/24 03:37 06/11/24 03:38
CT Intake/Output/Weight
06/10/24 06/10/24 06/11/24
06:59 18:59 06:59
Intake Total 600 / 730 490 / 970 480 / 970
Output Total 2050 / 4550 100 / 400 300 / 400
Balance -1450 / -3820 390 / 570 180 / 570
SaO2: 97
[2024-06-11] MEDS: TYLENOL 1000 MG PO ×2 (06:29→22:22)
[2024-06-11] MEDS: LOW STRENGTH ASPIRIN 81 MG PO (07:55)
[2024-06-11] MEDS: PACERONE 200 MG PO ×3 (07:55→22:22)
[2024-06-11] MEDS: PLAVIX 75 MG PO (07:55)
[2024-06-11] MEDS: LOPRESSOR 25 MG PO ×2 (07:55→20:42)
[2024-06-11] MEDS: LEXAPRO 10 MG PO (07:55)
[2024-06-11] MEDS: MAGNESIUM OXIDE 500 MG PO ×2 (07:55→20:43)
[2024-06-11] MEDS: NEURONTIN 100 MG PO ×3 (07:55→22:22)
[2024-06-11] MEDS: CRESTOR 40 MG PO (07:55)
[2024-06-11] MEDS: BACTROBAN 2% OINTMENT 1 APPLIC NASAL (07:55)
[2024-06-11] MEDS: PROTONIX 40 MG PO (07:55)
[2024-06-11] MEDS: NSS IV (07:58)
[2024-06-11] MEDS: SENOKOT-S PO (07:58)
--- NOTE | 2024-06-11 09:17 | PTCARENOTE ---
Assumed care of patient from maintenance supervisor 2nd shift RN. AAO x 3. C/o dizziness with looking down with any activity. Otherwise denies complaint. SR w/ BBB and prolonged QT on monitor. Room air 96%. IS to 1500. RT thigh ecchymotic. Surgical sites c,d,i.
Pulses palpable. Plan for day discussed.
--- NOTE | 2024-06-11 12:32 | SUR.PHASEI ---
Transfusion completed w/o issue. RT IJ cordis removed after. VSS. Ambulated w/o dizziness with RN. Assessment otherwise unchanged from prior.
[2024-06-11] MEDS: TYLENOL PO (16:05)
[2024-06-11] MEDS: FLEXERIL 5 MG PO (16:16)
--- NOTE | 2024-06-11 16:17 | PTCARENOTE ---
Ambulated with RN. VSS , c/o RT flank spasm/pain. Flexeril administered. Assessment otherwise unchanged from prior.
[2024-06-11] MEDS: SENOKOT-S 1 TABLET PO (20:43)
--- NOTE | 2024-06-11 21:40 | PTCARENOTE ---
Assumed care of patient from day shift. Patient ambulated, voiding with out issues, clear yellow urine. Patient had CHG bath and leads changed. Neurological WNl Patient on nurse monitoring, NSR, pulses palpitate , on room air, lungs diminished at
bases and course posterior, all surgical dressing C/D/I, pacer wire in place and taped. Abdomen soft, non tender, bowel sounds present. Right groin site, has large resolving brusing down to mid thigh. Skin clean dry. See assessment for more
detail. Ongoing plan of care reveiwed with patient.
[2024-06-12] VITALS (11 sets, daily range): BP systolic 107–147; BP diastolic 55–82; PULSE 78; O2SAT 95–98; BMI 31.9
--- NOTE | 2024-06-12 01:40 | PTCARENOTE ---
patient resting comfortably, VSS, reminds in NSR, on Room air, denies pain.
[2024-06-12 03:26] LABS: Hematocrit 25.4 % (37.0-47.0); Hemoglobin 8.3 g/dL (12.0-16.0); Mean Corp Hgb Conc. 32.7 g/dL (33.0-37.0); Mean Corpuscular Hgb 28.9 pg (27.0-31.0); Mean Corpuscular Volume 88.5 fL (81.0-99.0); Mean Platelet Volume 10.2 fL (7.4-10.4); Platelet Count 218 10^3/uL (130-400); Red Blood Cell Count 2.87 10^6/uL (4.20-5.40); Red Cell Dist. Width 14.8 % (11.5-14.5); White Blood Cell Count 9.7 10^3/uL (4.8-10.8)
--- NOTE | 2024-06-12 03:33 | PTCARENOTE ---
Patient alert and oriented, denies pain, ECG completed, labs drawn, VSS. patient OOB to void, clear yellow urine, passing gas.
[2024-06-12 03:43] LABS: Blood Urea Nitrogen 14 mg/dl (7-17); Calcium 8.6 mg/dl (8.4-10.2); Carbon Dioxide 28 mmol/L (22-30); Chloride 105 mmol/L (98-107); Estimated Creatinine Clearance 97 ml/min; Glucose 111 mg/dl (70-99); Potassium 4.1 mmol/L (3.5-5.1); Sodium 140 mmol/L (135-145); eGFR > 60.00
[2024-06-12 03:52] LABS: Total Iron Binding Capacity 216 ug/dl (265-497)
--- NOTE | 2024-06-12 04:22 | W.PN.CT ---
Today's Communication / Plan
-
-pod #5
-no issues overnight
-Hg 8.3 from 6.9 yesterday after 1UPRBC's
-QTc interval 492/534 - 480/507 ms yesterday (has known LBBB). Lexapro restarted Wednesday
-diuresis held due to orthostasis
-continue current meds (ASA, Plavix, Lopressor, Amio, Protonix)
-encourage IS, OOB
Assessment / Plan
-
- mv-CAD - s/p CABG x 4 (CHUCK to LAD, GSV to D2, GSV to OM1, GSV to RPDA); ELAA (40mm AtriClip - ACHV40); Repair of minor aortic tear by Dr. Sena on 06/07/24, pod #5
- bradycardic junctional rhythm requiring placement of temporary pacing wire, but eventually regained sustained NSR w/ known LBBB.
- Post-CARRIE: LVEF 65%, no RWMA, normal RV, trace MR/TR, no AI/; GABRIELA confirmed excluded
- CAD
- Ischemic CM - EF 44% by Echo 02/2024 and 60-65% postop
- Non-smoker
- HTN/HLD
- Chronic LBBB
- GERD/ gastroparesis
- Acute postop blood loss anemia- s/p 1 pRBC on 06/08
- Acute postop hypotension d/t vasoplegia
- Acute postop atelectasis
- Acute postop hypovolemia with subsequent hypervolemia
Subjective
Procedure
s/p CABG x 4 (CHUCK to LAD, GSV to D2, GSV to OM1, GSV to RPDA); ELAA (40mm AtriClip - ACHV40); Repair of minor aortic tear by Dr. Sena on 06/07/24
-
Date of Service: June 12, 2024
Objective Data
-
Lab Results
06/12/24 03:06
06/12/24 03:06
PT 18.3 Sec (11.4-14.6) H 06/07/24 13:24
INR 1.46 06/07/24 13:24
APTT 31.3 Sec (23.4-35.0) 06/07/24 13:24
Vital Signs
Vital Signs
Temp Pulse Resp BP Pulse Ox
99.2 F 67 18 112/55 93
06/12/24 03:07 06/12/24 03:07 06/12/24 03:07 06/12/24 03:07 06/12/24 03:07
CT Intake/Output/Weight
06/11/24 06/11/24 06/12/24
06:59 18:59 06:59
Intake Total 480 / 970 1220 / 1320 100 / 1320
Output Total 700 / 800 1250 / 1500 250 / 1500
Balance -220 / 170 -30 / -180 -150 / -180
SaO2: 93
Physical Exam
-
General: AOx3
Cardiovascular: Regular rate & rhythm
Respiratory: Clear
Sternum: Stable
Incision: Dressing Intact
Extremities: No Edema
[2024-06-12] MEDS: TYLENOL 1000 MG PO ×2 (05:58→14:06)
--- NOTE | 2024-06-12 06:09 | PTCARENOTE ---
Patient VSS, NSR, Alert and Oriented. Denies pain.
[2024-06-12] MEDS: PLAVIX 75 MG PO (07:52)
[2024-06-12] MEDS: LOPRESSOR 25 MG PO (07:52)
[2024-06-12] MEDS: PACERONE 200 MG PO ×2 (07:52→15:19)
[2024-06-12] MEDS: NEURONTIN 100 MG PO ×2 (07:52→15:19)
[2024-06-12] MEDS: LEXAPRO 10 MG PO (07:52)
[2024-06-12] MEDS: MAGNESIUM OXIDE 500 MG PO (07:52)
[2024-06-12] MEDS: SENOKOT-S 1 TABLET PO (07:52)
[2024-06-12] MEDS: FEOSOL 325 MG PO (07:52)
[2024-06-12] MEDS: CRESTOR 40 MG PO (07:52)
[2024-06-12] MEDS: PROTONIX 40 MG PO (07:52)
[2024-06-12] MEDS: LOW STRENGTH ASPIRIN 81 MG PO (07:52)
--- NOTE | 2024-06-12 10:56 | W.PN.CD ---
Today's Communication / Plan
-
continue ASA, Plavix, statin
trend tele
Impression / Plan
-
Impression/Plan: 73 y/o female with HTN, HLD, CAD and ischemic cardiomyopathy (LVEF 44%) admitted for elective CABG.
#CAD s/p CABG x 4 (CHUCK to LAD, GSV to D2, GSV to OM1, GSV to RPDA); ELAA (40mm AtriClip - ACHV40); Repair of minor aortic tear by Dr. Sena on 06/07/24
-CARRIE: EF 60-65%
-continue ASA, Plavix, statin
#HTN
-assess to resume home lisinopril as she recovers from OR
#HLD
-rosuvastatin 40mg daily
Subjective/Interval History:
Feeling OK some mild CP
DATA:
Cardiac Catheterization, 04/28/2024:
CORONARY ANGIOGRAPHY
Dominance: Right
LM: large, normal
LAD: large vessel giving rise to a small D1, moderate caliber D2, and wrapping around the apex. There is a 60% stenosis in the proximal vessel, focal 40% stenosis before the D1, and focal 70% stenosis after the D2.
LCx: large vessel giving rise to a small OM1, large OM2, large OM3, and several LPL branches. There is an 80% stenosis in the proximal portion of the OM1 and 40% ostial stenosis of the ostial OM2.
RCA: large vessel giving rise to a large RPDA and several RPL branches. There is a 50% stenosis in the proximal RCA and a focal 80% stenosis just before the bifurcation of the RPDA and RPAV (Warren 1,0,0).
TTE, 02/18/2024:
CONCLUSIONS
Mildly reduced left ventricular systolic function. Global hypokinesis.
LV ejection fraction is 44% by volumetric assessment.
Stage I diastolic dysfunction suggestive of abnormal relaxation.
No significant valvular disease.
No prior study available for comparison.
Pharmacologic SPECT, 04/12/2024:
CONCLUSION:
Abnormal Lexiscan stress test.
Inconclusive ECG for ischemia given the pharmacological study due to underlying left bundle branch block.
Perfusion imaging reveals a medium area of moderately decreased perfusion that is partially reversible in the mid to distal anterior wall and apex consistent with infarct with notable zohaib-infarct ischemia.
Systolic function is mildly reduced. The ejection fraction is 44%.
Moderate to high risk Stress Risk study.
No previous study available for comparison.
Physical Exam
Vital Signs/Labs
Vital Signs
Temp Pulse Resp BP Pulse Ox
98.1 F 72 18 118/63 95
06/12/24 07:57 06/12/24 07:57 06/12/24 08:00 06/12/24 07:57 06/12/24 08:01
06/11/24 06/12/24 06/13/24
06:59 06:59 06:59
Actual Weight 89.4 kg 89.7 kg
06/12/24 03:06
06/12/24 03:06
PT 18.3 Sec (11.4-14.6) H 06/07/24 13:24
INR 1.46 06/07/24 13:24
APTT 31.3 Sec (23.4-35.0) 06/07/24 13:24
Magnesium 2.2 mg/dl (1.6-2.3) 06/11/24 03:36
Physical Exam
Constitutional: No acute distress and Comfortable
EENT: Moist mucous membranes
Cardiovascular: Rhythm & rate is regular, Pedal edema is absent, JVD pressure is normal and Systolic murmur absent
Respiratory: Respiratory effort normal and Lungs clear to auscul.
Neuro/Psych: AO x 3
Data Reviewed
-
Date of Service: June 12, 2024
EKG: Other (Tele: SR 60s)
Labs: Labs Reviewed by me
[2024-06-12] MEDS: NSS IV (11:07)
--- NOTE | 2024-06-12 11:45 | CM ---
dc plans remain home with S.O. when medically stable. he is agreeable to f/u visit from the CT Transitional care nurse after dc.
--- NOTE | 2024-06-12 14:03 | W.DCSUMMARY ---
Discharge Summary
Discharge Data
Date of Admission: 06/07/24
Date of Discharge: 06/12/24
-
Pending Results: No
Hospital Course
Primary care physician: Hugh Razo
Outpatient access manager: Collins Hebert
Inpatient consultants: [facility], pulmonary fluxer
Procedures:
1. CABG, left atrial appendage clip
Primary Diagnosis:
1. Three-vessel coronary artery disease
Secondary Diagnoses:
1. GERD
2. Gastroparesis
3. Chronic left bundle branch block
4. Acute postop blood loss anemia
5. Postop prolonged QTc
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
7. Acute postoperative hypovolemia�expected
HPI: 73-year-old female was electively admitted on 06/07/2024 for CABG due to multivessel coronary disease
Hospital course: Patient underwent CABG x 4 (CHUCK to LAD, GSV to D2, GSV to OM1, GSV to RPDA), ELAA (40mm AtriClip), and repair of minor aortic tear by Dr. Andrey Sena. For further details please see operative note. Patient required no
intraoperative blood products and returned to CVICU on Levophed, dobutamine, Precedex, and insulin. Patient received 750 cc of Lactated Ringer's for postoperative hypotension during the initial postop period. Patient was extubated at 1645 the day
of surgery. On postoperative day 1, Lexapro was held due to QTc prolongation of 525 ms. Dobutamine and Levophed were weaned off. Aspirin and Plavix were initiated. Patient was delined and Cabrera removed. Patient's hemoglobin was 7.4 and she
experienced near syncopal episodes x 2 while attempting get out of bed. She was transfused with 1 PRBC. Chest tubes were removed on postoperative day #2 and patient diuresed 40 mg of IV Lasix. Heart rate remained in the 90s (sinus rhythm) and
Lopressor dose was increased from 12.5 to 25 mg twice daily. On postoperative day #4, patient's hemoglobin was 6.9 patient and she was transfused 1 PRBC. Right IJ was discontinued. Lexapro was resumed as patient has chronic left bundle branch
block and QTc was 530 ms. On postoperative day #5, the patient's hemoglobin improved to 8.3. Temporary epicardial ventricular wires were clipped at skin level. 2 view chest x-ray reported small left pleural effusion. Patient ambulated and
completed stairs with cardiac rehab. Patient did not experience postoperative arrhythmias and prophylactic amiodarone was discontinued on discharge. Patient was given an ' as needed' prescription for Lasix to utilize for weight gain of more than
3 pounds in 1 day or 5 pounds in 1 week. Patient should notify access manager of need for Lasix use. Patient will be followed by transitional nurse team and they were notified of need for follow-up CBC in 1 week.
Home medication changes:
Stop lisinopril
Metoprolol succinate dosage increased from 25 mg to 50 mg daily
Ferrous sulfate to continue x 1 month
Discharge Plan
-
Patient Disposition: Home (Routine Discharge)
Discharge Diagnosis/Procedures: CABG x4, left atrial appendage clip
Condition: Good
Diet: Low Cholesterol and Low Sodium
Activity: No strenuous activity
Driving Restrictions: Not until seen by your Dr
Bathing Restrictions: OK to Shower
Blood Work: CBC in 1 week
Other Services: Cardiac Rehab
Specialty Instructions: Weigh Daily- Call MD for wt gain/loss 3 lbs overnight/5 lbs in 1 week
Referrals:
CT Transitional Care Nurse [Outside] (The Cardiothoracic Transitional Care Nurse will call you to set up a visit in 1-2 days.)
[facility]. Cardiac Rehab [Outside] - 07/19/24 1:00 pm
(Cardiac Rehab Orientation appointment is on 07/19/24 at 1pm.
The Cardiac Rehab gym is located on the first floor of the [facility].)
Hugh Razo MD [Family Provider] -
Patrica Packer CRNP [Specified Professional Personl] - 07/24/24 10:00 am
Andrey Sena MD [Active] - 07/11/24 2:00 pm
Prescriptions:
New
clopidogrel 75 mg Tablet
75 mg PO DAILY Qty: 30 2RF
ferrous sulfate [Iron (ferrous sulfate)] 325 mg (65 mg iron) tablet
325 mg PO DAILY Qty: 30 0RF
acetaminophen 325 mg Tablet
650 mg PO Q4HPRN PRN (Reason: mild pain,headache,temp >101F ) Qty: 0 0RF
pantoprazole 40 mg Tablet,Delayed Release (Dr/Ec)
40 mg PO DAILY Qty: 30 2RF
gabapentin 100 mg Capsule
100 mg PO TID Qty: 30 0RF
oxycodone 5 mg Tablet
5 mg PO Q4HPRN PRN (Reason: severe pain) Qty: 10 0RF
metoprolol succinate [Toprol XL] 50 mg tablet extended release 24 hr
50 mg PO DAILY Qty: 30 2RF
furosemide [Lasix] 20 mg tablet
20 mg PO .daily prn Qty: 5 0RF
Continued
aspirin 81 mg Tablet,Delayed Release (Dr/Ec)
81 mg PO DAILY
ergocalciferol (vitamin D2) [Vitamin D2] 1,250 mcg (50,000 unit) Capsule
1,250 mcg PO QWEEK
escitalopram oxalate 10 mg Tablet
10 mg PO DAILY
rosuvastatin 40 mg Tablet
40 mg PO DAILY
Discontinued
lisinopril 10 mg Tablet
10 mg PO QPM
nitroglycerin 0.4 mg Tablet, Sublingual
0.4 mg SUBLINGUAL Q5-15M PRN (Reason: chest pain)
Patient Comments:
Never took
metoprolol succinate 25 mg Tablet Extended Release 24 Hr
25 mg PO QPM
Discharge Orders:
Discharge Patient (As Directed); Ordered 06/12/24
Ordered By: Rosemarie Shultz
Care Plan Goals
Care Plan Goals:
Problem: Readiness for enhanced knowledge related to diagnosis and treatment plan
Goal: Understand your diagnosis and treatment plan needs, including medications if applicable.
Instructions: Know your diagnosis, underlying causes and treatment plan options, including medications if applicable. Consult with your health care team to learn about your diagnosis and treatment plan, including medications if applicable.
Discharge Date and Time
Discharge Date/Time: 06/12/24 16:33
Print Language: TELUGU
--- NOTE | 2024-06-12 16:00 | PTCARENOTE ---
Discharge order written. Pt showered independently, tolerated. PIV d/c. Tele d/c. Vitals stable prior to discharge. All discharge instructions reviewed and patient in agreement. All questions answered. Pt's friend at bedside to take patient home.
== END 2024-06-12 16:33 | disposition home or self-care (01) | DRG 235 ==
LOC: CVICU 04:47
PROVIDERS: Anesthesiology; Physician Assistant Medical; ADMITTING PHYSICIAN Thoracic Surgery (Cardiothoracic Vascular Surgery); CONSULT PHYSICIAN Internal Medicine Critical Care Medicine; FAMILY PHYSICIAN Family Medicine
PROC: 06BP4ZZ Excision of Right Saphenous Vein, Percutaneous Endoscopic Approach (ICD-10-PCS; 2024-06-07)
PROC: 5A2204Z Restoration of Cardiac Rhythm, Single (ICD-10-PCS; 2024-06-07)
PROC: 5A1221Z Performance of Cardiac Output, Continuous (ICD-10-PCS; 2024-06-07)
PROC: 02L70CK Occlusion of Left Atrial Appendage with Extraluminal Device, Open Approach (ICD-10-PCS; 2024-06-07)
PROC: 02QX0ZZ Repair Thoracic Aorta, Ascending/Arch, Open Approach (ICD-10-PCS; 2024-06-07)
PROC: B24BZZ4 Ultrasonography of Heart with Aorta, Transesophageal (ICD-10-PCS; 2024-06-07)
PROC: 021209W Bypass Coronary Artery, Three Arteries from Aorta with Autologous Venous Tissue, Open Approach (ICD-10-PCS; 2024-06-07)
PROC: 02100ZC Bypass Coronary Artery, One Artery from Thoracic Artery, Open Approach (ICD-10-PCS; 2024-06-07)
PROC: 30233N1 Transfusion of Nonautologous Red Blood Cells into Peripheral Vein, Percutaneous Approach (ICD-10-PCS; 2024-06-08)
DX: I25.10 Atherosclerotic heart disease of native coronary artery without angina pectoris (principal); I49.01 Ventricular fibrillation; D62 Acute posthemorrhagic anemia; I97.51 Accidental puncture and laceration of a circulatory system organ or structure during a circulatory system procedure; J98.11 Atelectasis; I50.30 Unspecified diastolic (congestive) heart failure; R73.03 Prediabetes; E78.5 Hyperlipidemia, unspecified; E66.9 Obesity, unspecified; K21.9 Gastro-esophageal reflux disease without esophagitis; K31.84 Gastroparesis; I44.7 Left bundle-branch block, unspecified; R00.1 Bradycardia, unspecified; Y83.2 Surgical operation with anastomosis, bypass or graft as the cause of abnormal reaction of the patient, or of later complication, without mention of misadventure at the time of the procedure; E86.1 Hypovolemia; I95.81 Postprocedural hypotension; I25.5 Ischemic cardiomyopathy; I11.0 Hypertensive heart disease with heart failure; Z68.31 Body mass index [BMI] 31.0-31.9, adult; Z79.82 Long term (current) use of aspirin; Z79.899 Other long term (current) drug therapy
CPT/HCPCS: 36415; 71045; 71046; 80048; 80053; 81003; 81015; 82248; 82330; 82565; 82728; 82805; 82810; 82947; 82962; 83036; 83550; 83735; 84132; 84302; 84520; 85014; 85018; 85025; 85027; 85049; 85347; 85384; 85576; 85610; 85730; 86803; 86850; 86900; 86901; 86920; 87070; 87086; 93005; 93312; 93320; 93325; 93880; 94002; 94010; C1713; P9016; P9045

== ENCOUNTER 2024-08-07 11:56 | Outpatient (RCR) | payer OTHER, SELFPAY | END 2024-08-07 23:59 | disposition home or self-care (01) | LOC: CRHB 11:56 | PROVIDERS: ATTENDING PHYSICIAN Internal Medicine Cardiovascular Disease; FAMILY PHYSICIAN Family Medicine | DX: I25.10 Atherosclerotic heart disease of native coronary artery without angina pectoris (principal); Z95.1 Presence of aortocoronary bypass graft; I44.7 Left bundle-branch block, unspecified; E78.5 Hyperlipidemia, unspecified; I10 Essential (primary) hypertension | CPT/HCPCS: G0422; G0423 ==

== ENCOUNTER → 2024-08-17 12:33 | Outpatient (REF) | payer OTHER, SELFPAY | LOC: RAD 12:33 | PROVIDERS: ATTENDING PHYSICIAN Physician Assistant; FAMILY PHYSICIAN Family Medicine | DX: M25.561 Pain in right knee (principal); M79.661 Pain in right lower leg | CPT/HCPCS: 73564 ==

== ENCOUNTER 2024-09-04 13:10 | Outpatient (RCR) | payer OTHER, SELFPAY ==
[2024-08-15 07:54] LABS: HDL Cholesterol 72 mg/dl; LDL Cholesterol, Calculated 42 mg/dl; Very Low Density Lipoprotein 18 mg/dl (0-30)
== END 2024-09-04 23:59 | disposition home or self-care (01) ==
LOC: CRHB 13:10
PROVIDERS: ATTENDING PHYSICIAN Internal Medicine Cardiovascular Disease; FAMILY PHYSICIAN Family Medicine; REFERRING PHYSICIAN Internal Medicine Cardiovascular Disease
DX: Z95.1 Presence of aortocoronary bypass graft (principal)
CPT/HCPCS: 36415; 80061; G0422; G0423

== ENCOUNTER → 2024-09-20 13:51 | Outpatient (REF) | payer OTHER, SELFPAY | LOC: HWRCS 13:51 | PROVIDERS: ATTENDING PHYSICIAN Internal Medicine Cardiovascular Disease; FAMILY PHYSICIAN Family Medicine | DX: I50.20 Unspecified systolic (congestive) heart failure (principal) | CPT/HCPCS: 93306 ==

== ENCOUNTER 2024-10-06 13:56 | Outpatient (RCR) | payer OTHER, SELFPAY | END 2024-10-06 23:59 | disposition home or self-care (01) | LOC: CRHB 13:56 | PROVIDERS: ATTENDING PHYSICIAN Internal Medicine Cardiovascular Disease; FAMILY PHYSICIAN Family Medicine; REFERRING PHYSICIAN Internal Medicine Cardiovascular Disease | DX: Z95.1 Presence of aortocoronary bypass graft (principal) | CPT/HCPCS: G0422; G0423 ==

== ENCOUNTER 2024-11-03 11:21 | Outpatient (RCR) | payer OTHER, SELFPAY | END 2024-11-03 23:59 | disposition home or self-care (01) | LOC: CRHB 11:21 | PROVIDERS: ATTENDING PHYSICIAN Internal Medicine Cardiovascular Disease; FAMILY PHYSICIAN Family Medicine; REFERRING PHYSICIAN Internal Medicine Cardiovascular Disease | DX: I25.10 Atherosclerotic heart disease of native coronary artery without angina pectoris (principal); Z95.1 Presence of aortocoronary bypass graft | CPT/HCPCS: G0422; G0423 ==

== ENCOUNTER 2024-11-08 14:04 | Outpatient (RCR) | payer OTHER, SELFPAY | END 2024-11-22 06:52 | disposition home or self-care (01) | LOC: CRHB 14:04 | PROVIDERS: ATTENDING PHYSICIAN Internal Medicine Cardiovascular Disease; FAMILY PHYSICIAN Family Medicine; REFERRING PHYSICIAN Internal Medicine Cardiovascular Disease | DX: I25.10 Atherosclerotic heart disease of native coronary artery without angina pectoris (principal); Z95.1 Presence of aortocoronary bypass graft | CPT/HCPCS: G0422; G0423 ==